=== PATIENT | female | born 1935 | race Caucasian/White ===

== ENCOUNTER 2018-03-30 02:56 | Observation (INO) | payer OTHER, SELFPAY ==
[2018-03-30] VITALS (8 sets, daily range): BP systolic 118–157; BP diastolic 51–84; PULSE 63–78; RESP 13–20; TEMP 36.1–36.6; O2SAT 97–100; BMI 16.6
--- NOTE | 2018-03-30 | DI.MRI.S_ITS ---
PROCEDURE: MR STROKE Pre- and post-contrast brain MRI, non-contrast brain MR angiogram, pre- and postcontrast neck MR angiogram INDICATIONS: possible TIA TECHNIQUE: Brain: Noncontrast axial T1 spin echo, axial T2 fast spin echo, sagittal and axial FLAIR, coronal T2 fast spin echo, axial gradient echo, axial diffusion and ADC through the brain. After the administration of contrast, axial 3D VIBE of the cranial vasculature and brain. Brain MRA: Non-contrast 3-D time of flight MR angiogram, with multiple iansagj-epbgcanwv-coedbmnpov (MIP) reformats performed. Neck MRA: Axial and sagittal TruFISP through the neck. Coronal dynamic MR angiogram during administration of contrast in the arterial and venous phases, with 3-dimenstional cepxdgk-nnvgputqe-gusebamaoa (MIP) reformats constructed from subtraction images. COMPARISON: [facility], MR, BRAIN WITHOUT CONTRAST, 09/28/2008, 7:02. [facility], CT, CT HEAD/BRAIN WO CON, 03/30/2018, 2:56. [facility], CT, CT HEAD/BRAIN WO CON, 01/23/2018, 8:22. [facility], CT, HEAD WITHOUT CONTRAST, 04/02/2015, 15:39. [facility], MR, STROKE PROTOCOL, 02/20/2015, 14:44. FINDINGS: Image quality: Excellent. BRAIN: CSF spaces: Ventricles are normal in size and shape. Basal cisterns are patent. No extra-axial fluid collections. Brain: No intracranial bleeds or mass effects. Dodson-white matter interface is normal. Diffusion weighted images show no acute ischemic insults. Brainstem appears normal. Normal intravascular flow voids are present. No abnormal intracranial enhancement. Skull and face: Calvarial marrow signal is normal. Orbits appear normal. Note is made of bilateral lens replacements. Sinuses: Sinuses and mastoids are clear. There is a prominent right-sided kym bullosa, with associated mild to moderate leftward nasal septal deviation. BRAIN MR ANGIOGRAM: Anterior circulation: Intracranial internal carotid arteries are normal in size and enhancement. The flow within the paired anterior cerebral arteries is normal and symmetric. The flow within the middle cerebral arteries is normal and symmetric. The anterior communicating artery is seen. 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 Posterior circulation: The visualized portions of the vertebral arteries demonstrate normal caliber, and join to form a normal appearing basilar artery. There is a prominent left posterior communicating artery seen, with an accompanying diminutive left P1 segment. This is attributed to a type origin of the left posterior cerebral artery, which is considered to be a normal developmental variant of typically no clinical consequence. The flow within the posterior cerebral arteries is normal and symmetric. No stenoses, occlusions, or aneurysms. NECK MR ANGIOGRAM: Carotids: Great vessels demonstrate a conventional anatomy as they arise from the aortic arch. The origins of the common carotid arteries appear patent. The calibers and courses of both common carotid arteries are normal. The bifurcation regions the straight atherosclerotic irregularity. There is a mild stenosis of approximately 30% involving the right proximal internal carotid artery. Posterior circulation: The origins of the vertebral arteries appear patent. More superior portions of both vertebral arteries demonstrate normal caliber, and join to form a normal appearing basilar artery. Tortuosity can be seen involving the mid vertebral arteries. Miscellaneous: Subclavian arteries appear patent. Pre-contrast images through the neck show no soft tissue abnormalities. IMPRESSION: BRAIN MRI: No findings of acute or subacute infarction can be seen. Note is made of age-appropriate brain parenchymal volume loss and chronic small vessel ischemic changes. No masses or abnormal enhancement can be seen. 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 [place] anomaly incidentally noted, the type origin of the left posterior cerebral artery. NECK MR ANGIOGRAM: Approximately 30% stenosis seen involving the origin of the right internal carotid artery. Dictated by: Ishan Siddiqui M.D. on 03/30/2018 at 11:46 Approved by: Ishan Siddiqui M.D. on 03/30/2018 at 11:53
--- NOTE | 2018-03-30 | DI.ECHO.S_ITS ---
[facility]---------+ [facility] +---------+ : : [address] [place] [address] : : : : [id number] : : : : Phone: [phone] Echocardiogram Report + + :Name: CALLI OCAMPO Study Date: 03/30/2018 Height: 65 in : :[facility] Weight: 104 lb : : Gender: Female BSA: 1.5 m2 : :: 1935 Age: 83 yrs BP: 140/84 mmHg: :Reason For Study: TIA : : Performed By: Becca Holm : :Referring: CANDIE NORRIS : + + Interpretation Summary 1. Normal left ventricular size, wall thickness and systolic function with an estimated EF of 60-65% 2. Grossly normal right ventricular size and systolic function. The estimated RVSP is 22 mm Hg. The estimated right atrial pressure is low. 3. No evidence for significant valvular pathology When compared to the previous study, no significant change Procedure: A two-dimensional transthoracic echocardiogram with color flow and Doppler was performed. Comparison is made with the echocardiogram of 06/08/2017. The study quality was technically adequate. The patient was in normal sinus rhythm during the exam. Left Ventricle: There has been no significant change since the previous study. The left ventricle is normal in size. There is normal left ventricular wall thickness. The ejection fraction is estimated to be 60-65%. Diastolic function could not be accurately assessed due to unobtainable data. Right Ventricle: The right ventricle grossly appears normal in size with probable normal systolic function. Atria: The left atrial size is normal. Right atrial size is normal. No color doppler evidence for an ASD. Mitral Valve: The mitral valve leaflets appear mildly thickened, but open well. There is no mitral regurgitation noted. Aortic Valve: The aortic valve is trileaflet. The aortic valve opens well. Mild sclerotic changes. No aortic regurgitation is present. Tricuspid Valve: The tricuspid valve leaflets are thin and pliable. There is mild to moderate tricuspid regurgitation. The right ventricular systolic pressure is estimated at 22 mmHg assuming a right atrial pressure of 3 mm Hg. Pulmonic Valve: The pulmonic valve is not well visualized. Great Vessels: The aortic root is normal size. The dimensions of the ascending aorta are normal. The IVC is of normal diameter and collapses greater than 50% with a sniff. This suggests a low right atrial pressure of 3 mm Hg. Pericardium/ Pleura There is no pericardial effusion. There is no pleural effusion. MMode/2D Measurements & Calculations LVIDd: 4.3 cm Ao root diam: 3.3 cm LVIDs: 2.4 cm asc Aorta Diam: 3.0 cm FS: 45.1 % Ao Arch Diam (Prox Trans): 2.5 cm IVSd: 0.59 cm LVPWd: 0.75 cm LV marie. diameter/BSA (cm/m^2): 2.9 LV sys. diameter/BSA (cm/m^2): 1.6 LA dimension: 2.4 cm RA long axis: 2.8 cm RA area: 6.8 cm2 RA vol: 13.7 ml RA : 9.2 ml/m2 IVC diam: 1.6 cm RVD1 (basal): 3.6 cm Doppler Measurements & Calculations Ao V2 max: 141.6 cm/sec MV E max indra: 79.3 cm/sec Ao V2 mean: 95.4 cm/sec MV A max indra: 89.0 cm/sec Ao max P.0 mmHg MV E/A: 0.89 Ao mean P.3 mmHg Med Peak E' Indra: 4.8 cm/sec Ao V2 VTI: 30.7 cm E/E' med: 16.4 Lat Peak E' Indra: 5.7 cm/sec E/E' lat: 14.0 E/e' average: 15.2 MV dec time: 0.24 sec MV P1/2t: 71.3 msec TR max indra: 215.8 cm/sec MV P1/2t max indra: 78.9 cm/sec TR max P.6 mmHg MVA(P1/2t): 3.1 cm2 PA V2 max: 95.3 cm/sec PA V2 mean: 67.9 cm/sec PA mean P.1 mmHg PA Accel Time: 0.15 sec Reading Physician:DINAH
--- NOTE | 2018-03-30 02:58 | DI.CT.S_ITS ---
PROCEDURE: CT HEAD/BRAIN WO CON INDICATIONS: stroke. headache, confusion TECHNIQUE: Noncontrast 4.5 mm thick angled axial sections acquired from the foramen magnum to the vertex, with coronal and sagittal reformats. For radiation dose reduction, the following was used: automated exposure control, adjustment of mA and/or kV according to patient size. COMPARISON: [facility], CT, CT HEAD/BRAIN WO CON, 01/23/2018, 8:22. [facility], CT, HEAD WITHOUT CONTRAST, 04/22/2017, 8:55. [facility], CT, HEAD WITHOUT CONTRAST, 04/02/2015, 15:39. FINDINGS: Image quality: Excellent. CSF spaces: Basal cisterns are patent. No extra-axial fluid collections. The ventricles are symmetric in size and shape. Brain: No intracranial bleeds or masses. There is cerebral volume loss for age, with resultant ventricular and sulcal prominence. There are periventricular and deep white matter chronic small vessel ischemic changes. There is intracranial internal carotid artery atherosclerosis. Skull and face: Calvarium and visualized facial bones appear intact, without suspicious lesions. Sinuses: Visualized sinuses and mastoids are clear. IMPRESSION: Moderate microvascular atherosclerotic change in the deep white matter of each hemisphere, expected for age. No mass or hemorrhage, or suspicion for presence of stroke is found. Dictated by: Jules Gordon M.D. on 03/30/2018 at 8:10 Approved by: Jules Gordon M.D. on 03/30/2018 at 8:11
--- NOTE | 2018-03-30 03:23 | ED_ITS ---
HPI - Altered Mental Status General Chief Complaint: Neuro Symptoms/Deficit Stated Complaint: Confusion/ Headache Time Seen by Provider: 03/30/18 02:58 Source: patient and EMS Mode of arrival: EMS Limitations: no limitations History of Present Illness HPI narrative: 83F with history of HTN, and traumatic ICH presents via EMS with chief complaint of confusion and difficulty with word finding since waking up at 0230. She did not know where she was and had trouble with speech with EMS. She states she went to bed at about 2000. She denies other focal neurologic symptoms. She states she is perhaps feeling a bit better on her arrival. She is activated as code stroke and taken directly to CT. She lives at home alone. MD complaint: altered mental status and confusion Time: 02:30 Severity: mild Related Data Home Medications Medication Instructions Recorded Confirmed VITAMIN D (LEON VITAMIN D) 2,000 iu PO QDAY #0 06/02/11 Calcium/Vitamin D (#CALCIUM + D 1 tab PO TID #0 08/06/11 600 MG-200 IU) FOLIC ACID (#FOLACIN-800) 0.8 mg PO QDAY #0 08/06/11 VITAMIN B COMPLEX (Q-[id number]-33) 1 cap PO BID #0 03/10/12 Previous Rx's Medication Instructions Recorded levothyroxine [Synthroid] 75 mcg PO QAM #90 tab 01/29/17 diazepam 0 PO SEE INSTRUCTIONS #30 tab 02/16/17 nitroglycerin [Nitrostat] 0.4 mg SUBLINGUAL PRN PRN #25 tab 06/08/17 ramipril 2.5 mg PO QDAY #90 cap 07/12/17 varicella-zoster gE-AS01B (PF) 0.5 ml IM X1 #1 ea 12/08/17 [Shingrix (PF)] Allergies Allergy/AdvReac Type Severity Reaction Status Date / Time atorvastatin [ATORVASTATIN] Allergy Intermediate Unverified 12/29/17 13:03 clopidogrel [CLOPIDOGREL] Allergy Intermediate Chest Unverified 12/29/17 13:03 tightness, itching cephalexin [CEPHALEXIN] Allergy Mild Severe Unverified 12/29/17 13:03 puritis chlorthalidone Allergy Mild Unverified 12/29/17 13:03 [CHLORTHALIDONE] lisinopril [LISINOPRIL] Allergy Mild Unverified 12/29/17 13:03 metoprolol [METOPROLOL] AdvReac Mild Shortness Unverified 12/29/17 13:03 of breath, dizziness, nausea pravastatin [PRAVASTATIN] AdvReac Mild Joint Unverified 12/29/17 13:03 pain, headache, blurred vision, diarrhea, nausea rosuvastatin [ROSUVASTATIN] AdvReac Mild Muscle Unverified 12/29/17 13:03 cramps, leg pain Review of Systems Review of Systems All systems reviewed & are unremarkable except as noted in HPI and below Constitutional Denies chills, Denies fever(s), Denies lethargy and Denies weakness Eyes Denies change in vision, Denies eye discharge, Denies irritation and Denies loss of vision ENT Ears, Nose, Mouth, and Throat: Denies change in voice, Denies neck pain and Denies sore throat Cardiovascular Denies chest pain, Denies irregular heart rhythm, Denies lightheadedness, Denies palpitations, Denies dyspnea, Denies dyspnea on exertion and Denies orthopnea Respiratory Denies cough, Denies dyspnea, Denies dyspnea on exertion and Denies wheezing Gastrointestinal Gastrointestinal: Denies abdominal pain, Denies change in bowel habits, Denies diarrhea, Denies nausea and Denies vomiting Genitourinary Denies hematuria, Denies flank pain, Denies urinary incontinence and Denies urinary urgency Musculoskeletal Denies neck pain Integumentary/Breasts Denies pruritus, Denies erythema, Denies rash and Denies wounds Neurologic Reports abnormal speech, Reports confusion, Denies loss of vision and Denies weakness Psychiatric Denies anxiety, Reports confusion, Denies depression, Denies homicidal ideation and Denies suicidal ideation Endocrine Denies palpitations Hematologic/Lymphatic Denies easy bruising Allergic/Immunologic Denies wheezing Exam Initial Vital Signs Initial Vital Signs: Vital Signs Temperature 97.6 F 03/30/18 03:06 Pulse Rate 63 03/30/18 03:06 Respiratory Rate 15 03/30/18 03:06 Blood Pressure 146/60 H 03/30/18 03:06 Pulse Oximetry 100 03/30/18 03:06 Const General: cooperative and well developed Nutritional Appearance: well nourished Orientation: alert, awake, oriented x3 and confused HENMT Head: normocephalic and atraumatic Ears: external ears normal and TM's normal bilaterally Nose: external nose normal and No nasal discharge Face and sinus: sinuses nontender, face symmetric, no sinus tenderness and No dry mucous membranes Mouth: oral mucosae normal and moist mucous membranes Teeth and gingiva: dentition normal Throat: tonsils normal and uvula midline Eyes General: appearance normal, both eyes and all related structures Eyelids: eyelids normal Conjunctivae: conjunctivae normal Sclera: sclerae normal Pupils: PERRL EOM: EOM intact bilaterally Neck Neck: normal visual inspection, trachea midline, No lymphadenopathy, No midline deformity and No JVD Lymphatic: No lymphedema Chest Chest: normal inspection of the chest Resp Effort & Inspection: normal respiratory effort, able to speak in complete sentences, no respiratory distress and no use of accessory muscles Auscultation: clear to auscultation bilaterally, no rales, no rhonchi and no wheezes Cardio Rate: regular rate Rhythm: regular rhythm Heart Sounds: no click, no gallops, no murmurs and no rubs Pulses: normal peripheral pulses GI Inspection: non-distended Palpation: soft, no hepatosplenomegaly, No guarding, No pulsatile mass and No tender Auscultation: normal bowel sounds Back/Spine/Pelvis Back: No CVA tenderness Cervical Spine: cervical ROM normal and No pain with cervical ROM Thoracic/Lumbar Spine: thoracic and lumbar spine normal to inspection Skin General: no rashes or lesions noted, No jaundice and No petechiae Neuro General: alert, oriented x3, gait normal and no focal motor deficits Speech: speech normal Extrem General: full ROM, no clubbing, cyanosis or edema, no pedal edema and no calf tenderness Psych Appearance: well kempt Mental Status: mental status grossly normal Attitude: cooperative Thought Content: normal and suicidality Judgment: judgment good Scores NIH Stroke Scale Level of Conciousness: Alert, keenly responsive Ask month/age: Answers both questions correctly. Open/close eyes, close hand: Performs both tasks correctly Best gaze horizontal: Normal Visual hills: No visual loss Facial palsy: Normal symetrical movement Left arm drift: No drift for full 10 sec Right arm drift: No drift for full 10 sec Left leg drift: No drift for full 10 sec Right leg drift: No drift for full 10 sec Limb ataxia: Absent Sensory on face/arms/legs: Normal, no sensory loss Best language: No aphasia, normal Dysarthria: Normal Extinction or inattention: No abnormality Total NIH Stroke scale score: 0 Course Orders Ordered: ED Orders 03/30/18 02:58 CT head/brain wo con Stat Urine Drug Screen, Rapid Stat EKG-12 Lead Stat 03/30/18 03:20 Basic Metabolic Panel Stat Complete Blood Count AUTO DIFF Stat Partial Thromboplastin Time Stat Prothrombin Time INR Stat Sodium Chloride (Normal Saline 0.9%) 1,000 mls @ 150 mls/hr IV CONT RYAN Last Admin: 03/30/18 04:11 Dose: 150 mls/hr Discontinued Medications Aspirin (Aspirin Chew) 324 mg PO NOW ONE Stop: 03/30/18 04:04 Last Admin: 03/30/18 04:11 Dose: 324 mg Reevaluation(s) Reevaluation #1: Patient was still a bit confused and having difficulty finding words on her arrival and while being transported to CT however by the time the NIH stroke scale was performed she had no more symptoms Consultations Consultation #1: Dr. Ramsay happy to accept patient on her service in observation status Vital Signs - 8 hr 03/30/18 03:06 Temperature 97.6 F Pulse Rate 63 Respiratory Rate 15 Blood Pressure 146/60 H Pulse Oximetry 100 MDM - Altered Mental Status Differential Diagnosis Likely altered mental status, delirium, dementia and subarachnoid hemorrhage Medical Records Attestation: I reviewed the patient's medical records. Lab Data Attestation: I reviewed the patient's lab results. Result diagrams: 03/30/18 03:20 03/30/18 03:20 Lab Results 03/30/18 03/30/18 03/30/18 Range/Units 03:20 03:20 03:20 WBC 3.3 L (4.5-11.0) X10^3/uL RBC 4.75 (4.0-5.2) X10^6/uL Hgb 13.4 (12.0-16.0) g/dL Hct 40.1 (36-46) % MCV 84.4 (80-100) fL MCH 28.2 (26-34) PG MCHC 33.4 (30-36) % RDW 13.6 (11.6-14.8) % Plt Count 169 (150-400) X10^3/uL Neut % (Auto) 45.7 L (50-75) % Lymph % (Auto) 42.6 H (25-40) % [place] % (Auto) 8.1 (3-14) % Eos % (Auto) 2.4 (2-4) % Baso % (Auto) 1.2 (0-2) % Neut # (Auto) 1500 L (3198-3433) /uL PT 10.3 (10.1-12.7) SECONDS INR 0.9 (0.9-1.3) APTT 28 (26.4-36.2) SECONDS Sodium 141 (137-145) mmol/L Potassium 4.1 (3.4-5.1) mmol/L Chloride 100 (98-107) mmol/L Carbon Dioxide 30 (22-32) mmol/L BUN 12 (7-17) mg/dL Creatinine 0.90 (0.52-1.04) mg/dL Estimated GFR 59.8 L (>60) mL/min BUN/Creatinine Ratio 13.3 (6-22) Glucose 90 (80-110) mg/dL Calcium 9.7 (8.4-10.2) mg/dL Imaging Data CT scan - head: Radiologist's impression: NAP Discharge Plan Departure Patient Disposition: Admitted as Observation Clinical Impression: Brain TIA Admit Date/Time: 03/30/18 04:07 Admit Provider: Priya Ramsay
[2018-03-30 03:40] LABS: INR 0.9 (0.9-1.3); Prothrombin Time 10.3 SECONDS (10.1-12.7)
[2018-03-30 03:42] LABS: PTT Partial Thromboplastin Tim 28 SECONDS (26.4-36.2)
[2018-03-30 03:44] LABS: BUN Creatinine Ratio 13.3 (6-22); Blood Urea Nitrogen 12 mg/dL (7-17); Calcium 9.7 mg/dL (8.4-10.2); Carbon Dioxide 30 mmol/L (22-32); Chloride 100 mmol/L (98-107); Estimated Glomerular Filt Rate 59.8 mL/min (>60); Glucose 90 mg/dL (80-110); HEMOLYSIS < 15 (0-50); Potassium 4.1 mmol/L (3.4-5.1); Sodium 141 mmol/L (137-145)
[2018-03-30 03:59] LABS: Add Manual Diff / Slide Review NO; Basophils Percent Auto 1.2 % (0-2); Eosinophils Percent Auto 2.4 % (2-4); Hematocrit 40.1 % (36-46); Hemoglobin 13.4 g/dL (12.0-16.0); Lymphocytes Percent Auto 42.6 % (25-40); Mean Corpuscular HGB Conc 33.4 % (30-36); Mean Corpuscular Hemoglobin 28.2 PG (26-34); Mean Corpuscular Volume 84.4 fL (80-100); Monocytes Percent Auto 8.1 % (3-14); Neutrophils Absolute Auto 1500 /uL (3000-5900); Neutrophils Percent Auto 45.7 % (50-75); Platelet Count 169 X10^3/uL (150-400); Red Blood Cell Count 4.75 X10^6/uL (4.0-5.2); Red Cell Distribution Width 13.6 % (11.6-14.8); White Blood Cell Count 3.3 X10^3/uL (4.5-11.0)
[2018-03-30] MEDS: ASPIRIN 81 MG TAB 324 MG PO (04:11)
[2018-03-30] MEDS: SODIUM CHLORIDE 0.9% 1,000 ML 150 ML IV (04:11)
[2018-03-30] MEDS: SODIUM CHLORIDE 0.9% 1,000 ML 80 ML IV (04:30)
--- NOTE | 2018-03-30 04:40 | PC.NURSE ---
c/o Confused upon waking at 0230, called EMS herself, reports confusion improving since that time, also c/o headache/malaise yesterday prior to going to bed. Reports problem with speech as trouble forming words however her speech is clear and coherent
--- NOTE | 2018-03-30 05:17 | PC.NURSE ---
Admit Note: Pt arrived from ED per elaina, SHERIOx3, pleasant. Ambulated to bed w/o problems. Complains of posterior sharp throbbing headache 3/10, and dull frontal headache. Denies wanting pain medication at this time, just wants to sleep. VSS, placed on tele. IVF's started, bed alarm on for moderate fall risk due to neuro changes. Stable on admit.
--- NOTE | 2018-03-30 06:38 | PC.ADMIT ---
[email or web address] [facility] Admission Note: The patient,Kaylene Tran,83 y/o, was given written information regarding hospital policies, unit procedures and contact persons. Patient's smoking status: Never smoker. Vital Signs - 8 hr 03/30/18 03:06 03/30/18 03:15 03/30/18 03:30 Temperature 97.6 F Pulse Rate 63 67 63 Respiratory Rate 15 17 16 Blood Pressure 146/60 H Blood Pressure [Right Arm] 155/61 H 127/59 H Pulse Oximetry 100 98 99 03/30/18 03:45 03/30/18 04:00 03/30/18 04:30 Temperature 97.0 F L Pulse Rate 64 64 64 Respiratory Rate 13 14 18 Blood Pressure 140/84 H Blood Pressure [Right Arm] 124/51 H 118/59 L Pulse Oximetry 98 99 97 Pt is AxOx3, VSS, no s/s of distress, ambulated to bed well with standby assist. IVF started as ordered. Telemetry placed. Pt stated she had a dull headache but did not want any medications for it. Speech is clear, thought process clear, no motor deficit, appropriate extremity strength, facial symmetry intact, no edema. Scabs noted on face due to hitting her face against the kitchen cabinet a few days ago by accident.
[2018-03-30 08:45] LABS: Cholesterol 209 mg/dL (140-199); HDL Cholesterol 68 mg/dL (40-60); LDL Cholesterol Calculated 126 mg/dL (<100); Triglycerides 76 mg/dL (35-150)
--- NOTE | 2018-03-30 09:12 | P.HP_ITS ---
History of Present Illness Date Patient Seen: 03/30/18 Time Patient Seen: 07:45 Chief complaint: Confusion/ Headache Narrative: The pt is a 83 year old woman with HTN, hypothyroidism, and CAD s/p [place] with stent placement who presented with confusion. The pt reports that last night she woke from sleep around 2:30am, and felt very befuddled. At first, she did not know where she was. She then realized she was at home, and due to the confusion called EMS. She did remember her address to tell them. She has a difficult time describing the confusion, other than to say she was befuddled. Reportedly, when EMS arrived she did not know where she was and was having a difficult time speaking. The pt had gone to bed around 10pm. After arrival in the ED, the pt gradually felt less and less confused. On waking this morning, she feels completely back to her normal baseline. The pt reports that she has been having a mild occipital headache for the past week. She denies any recent vision changes. Along with her confusion, she noted that her legs felt more weak than usual, left worse than right, but she was still able to ambulate. She denies any other focal weakness or sensory deficits. She denies any chest pain. Yesterday afternoon she had mild SOB, but this was resolved by last evening. Patient History Medical History CAD (coronary artery disease) (Chronic) Cataracts, bilateral (Chronic 2014) Concussion (Chronic 1999) GERD (gastroesophageal reflux disease) (Chronic 2008) Heart failure (Chronic) Hyperlipidemia (Chronic) Hypertension (Chronic) Hypothyroidism (Chronic) Peptic ulcer disease (Chronic 2008) Peripheral neuropathy (Chronic) Colon polyps (Resolved) Fall at home (Resolved 09/2014) H/O coronary angiogram (Resolved) Surgical History History of angioplasty (Resolved 2011) Status post colonoscopy (Resolved 2009) Status post colonoscopy (Resolved 12/29/13) Status post hysterectomy with oophorectomy (Resolved 1997) Family & Social History Family History: Reviewed 03/30/18 by Priya Ramsay MD Social History: household members none Prior Living Arrangements Mobile home Safety & Behavioral: Feels Safe in Current Yes Environment Been Physically Hurt or No Threatened By a Person Suicidal Ideation Description None Tobacco & Substance use: Smoking Status Never smoker alcohol intake current alcohol intake frequency a few times a week Substance Use Type does not use Meds Home Medications Medication Instructions Recorded Confirmed Type VITAMIN D (LEON VITAMIN D) 2,000 iu PO QDAY #0 06/02/11 History Calcium/Vitamin D (#CALCIUM + D 1 tab PO TID #0 08/06/11 History 600 MG-200 IU) FOLIC ACID (#FOLACIN-800) 0.8 mg PO QDAY #0 08/06/11 History VITAMIN B COMPLEX (I-[id number]-50) 1 cap PO BID #0 03/10/12 History levothyroxine [Synthroid] 75 mcg PO QAM #90 tab 01/29/17 03/30/18 Rx diazepam 0 PO SEE INSTRUCTIONS #30 tab 02/16/17 Rx nitroglycerin [Nitrostat] 0.4 mg SUBLINGUAL PRN PRN #25 tab 06/08/17 Rx ramipril 2.5 mg PO QDAY #90 cap 07/12/17 Rx varicella-zoster [id number] (PF) 0.5 ml IM X1 #1 ea 12/08/17 Rx [Shingrix (PF)] Allergies Allergy/AdvReac Type Severity Reaction Status Date / Time atorvastatin [ATORVASTATIN] Allergy Intermediate Unverified 12/29/17 13:03 clopidogrel [CLOPIDOGREL] Allergy Intermediate Chest Unverified 12/29/17 13:03 tightness, itching cephalexin [CEPHALEXIN] Allergy Mild Severe Unverified 12/29/17 13:03 puritis chlorthalidone Allergy Mild Unverified 12/29/17 13:03 [CHLORTHALIDONE] lisinopril [LISINOPRIL] Allergy Mild Unverified 12/29/17 13:03 metoprolol [METOPROLOL] AdvReac Mild Shortness Unverified 12/29/17 13:03 of breath, dizziness, nausea pravastatin [PRAVASTATIN] AdvReac Mild Joint Unverified 12/29/17 13:03 pain, headache, blurred vision, diarrhea, nausea rosuvastatin [ROSUVASTATIN] AdvReac Mild Muscle Unverified 12/29/17 13:03 cramps, leg pain Review of Systems Constitutional Constitutional: Denies difficulty sleeping, Denies fatigue, Reports frequent falls, Reports headache(s), Denies night sweats, Reports weakness and Reports weight loss ENT Ears, Nose, Mouth, and Throat: No abnormal hearing, No change in voice, No dry mouth, Yes headache(s), No ringing in the ears, No sinus pain and No sore throat Cardiovascular Cardiovascular: Denies chest pain, Denies fast heart rate, Denies foot swelling , Denies lightheadedness, Denies rapid, pounding, or irregular heartbeat and Reports shortness of breath Respiratory Respiratory: Denies cough, Reports dyspnea and Denies wheezing Gastrointestinal Gastrointestinal: Denies abdominal pain, Denies constipation, Denies heartburn, Denies nausea and Denies vomiting Musculoskeletal Musculoskeletal: Denies abnormal gait and Denies limited range of motion Neurologic Neurologic: Denies abnormal hearing, Denies abnormal gait, Reports frequent falls, Reports headache(s) and Reports weakness Endocrine Endocrine: Denies fatigue and Denies palpitations Allergic/Immunologic Allergic/Immunologic: Denies wheezing Exam Vital Signs (past 8 hours): - 03/30/18 03:06 03/30/18 03:15 03/30/18 03:30 Temperature 97.6 F Pulse Rate 63 67 63 Respiratory Rate 15 17 16 Blood Pressure 146/60 H Blood Pressure [Right Arm] 155/61 H 127/59 H Pulse Oximetry 100 98 99 03/30/18 03:45 03/30/18 04:00 03/30/18 04:30 Temperature 97.0 F L Pulse Rate 64 64 64 Respiratory Rate 13 14 18 Blood Pressure 140/84 H Blood Pressure [Right Arm] 124/51 H 118/59 L Pulse Oximetry 98 99 97 Oxygen Delivery Method Room Air Narrative Exam Narrative: GEN - alert, cooperative and no distress HEENT - normocephalic and atraumatic, sclera white, moist mucus membranes, throat non-erythematous NECK - FROM, no adenopathy, no JVD HEART - RRR, S1, S2 normal, no S3 or S4, grade 2/6 systolic murmur LUNGS - symmetric chest rise, no accessory muscles, clear to auscultation bilaterally ABD - flat, nondistended, normal bowel sounds, soft, nontender and no hepatomegaly, splenomegaly or masses EXT - no cyanosis, clubbing or edema SKIN - no rashes or suspicious lesions NEURO - alert and and oriented to person, place and situation, Muscle strength is 5/5 UE and LE, Sensation to light touch present bilaterally, Coordination shows finger to nose, heel to quinn, and arm roll normal bilaterally Objective Imaging CT scan - head: Radiologist's impression: Moderate microvascular atherosclerotic change in the deep white matter of each hemisphere, expected for age. No mass or hemorrhage, or suspicion for presence of stroke is found. Labs Result Diagrams: 03/30/18 03:20 03/30/18 03:20 Labs: Laboratory Results - last 24 hr 03/30/18 03/30/18 03/30/18 03:20 03:20 03:20 WBC 3.3 L RBC 4.75 Hgb 13.4 Hct 40.1 MCV 84.4 MCH 28.2 MCHC 33.4 RDW 13.6 Plt Count 169 Neut % (Auto) 45.7 L Lymph % (Auto) 42.6 H [place] % (Auto) 8.1 Eos % (Auto) 2.4 Baso % (Auto) 1.2 Neut # (Auto) 1500 L PT 10.3 INR 0.9 APTT 28 Sodium 141 Potassium 4.1 Chloride 100 Carbon Dioxide 30 BUN 12 Creatinine 0.90 Estimated GFR 59.8 L BUN/Creatinine Ratio 13.3 Glucose 90 Calcium 9.7 Triglycerides Cholesterol LDL Cholesterol, Calc HDL Cholesterol 03/30/18 Unknown WBC RBC Hgb Hct MCV MCH MCHC RDW Plt Count Neut % (Auto) Lymph % (Auto) [place] % (Auto) Eos % (Auto) Baso % (Auto) Neut # (Auto) PT INR APTT Sodium Potassium Chloride Carbon Dioxide BUN Creatinine Estimated GFR BUN/Creatinine Ratio Glucose Calcium Triglycerides 76 Cholesterol 209 H LDL Cholesterol, Calc 126 H HDL Cholesterol 68 H Assessment & Plan (1) Brain TIA: Problem details: Negative CT scan, but symptoms most consistent with TIA. Does have risk factors of HTN and CAD. 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 Current visit: No Status: Chronic Plan: Assessment/Plan Narrative: 1) TIA: Symptoms completely resolved - MRI stroke protocol today - Echocardiogram today - Start daily aspirin - Pt is not statin tolerant, therefore unfortunately cannot initiate therapy - PT eval due to leg weakness yesterday 2) Hypertension: - Continue Ramipril 3) Hypothyroidism: - Continue Levothyroxine FEN: Normal diet Dispo: Possible d/c later today pending results of above testing.
--- NOTE | 2018-03-30 09:26 | CM.DANOTE ---
DCP: Case received, EMR reviewed and met with patient. Introduced self and role. DCP template completed with info currently available. Pt is n 83 year old female who admitted yesterday afternoon to care f hospitalist team. PCP: Dr. Ramsay Payer: confirmed: [facility] Ad[facility] Pt. carries symptoms of headache, and was admitted for confusion as well. Currently alert and oriented. Plan: Patient lives at home alone and has been independent. Will consult with hospitalist team to discuss discharge. Further testing may be done to rule out CVA Mariza Hickey RN/residential case manager
[2018-03-30] MEDS: RAMIPRIL 2.5 MG CAPSULE PO (13:29)
[2018-03-30] MEDS: LEVOTHYROXINE 75 MCG TABLET PO (13:29)
--- NOTE | 2018-03-30 14:59 | PC.NURSE ---
Pts NIH stroke scale O today. Hood Maker wnl and o slurred speech. Pt showered and is sitting up in her chair. ate well at breakfast and lunch. Waiting for echo around 1530.
--- NOTE | 2018-03-30 15:21 | PC.NURSE ---
1520 pt receiving bedside echo. rounding on pt. states pt okay to DC after echo at 1700.even if report not yet read.
--- NOTE | 2018-03-30 15:57 | PT.IIE ---
Current Diagnoses Hypothyroidism, unspecified (03/30/18) Other transient cerebral ischemic attacks and related syndromes (03/30/18) Essential (primary) hypertension (03/30/18) Surgical History (Last Reviewed 03/30/18 @ 09:40 by Priya Ramsay MD) History of angioplasty (Resolved 2011) Status post colonoscopy (Resolved 2009) Status post colonoscopy (Resolved 12/29/13) Status post hysterectomy with oophorectomy (Resolved 1997) Medical History (Last Reviewed 03/30/18 @ 09:40 by Priya Ramsay MD) CAD (coronary artery disease) (Chronic) Cataracts, bilateral (Chronic 2014) Concussion (Chronic 1999) GERD (gastroesophageal reflux disease) (Chronic 2008) Heart failure (Chronic) Hyperlipidemia (Chronic) Hypertension (Chronic) Hypothyroidism (Chronic) Peptic ulcer disease (Chronic 2008) Peripheral neuropathy (Chronic) Colon polyps (Resolved) Fall at home (Resolved 09/2014) H/O coronary angiogram (Resolved) Physical Therapy Inpatient Evaluation/Re-Eval M1 PT/OT-IP Prior Functional Status Start: 03/30/18 15:37 Freq: NEEDED Status: Active Protocol: Document 03/30/18 14:45 MDD (Rec: 03/30/18 15:57 MDD [id number]) Medical Review Prior Functional Status Medical History Reviewed Yes Mobility and Gait Mod independent with single point cane. Activities of Daily Living and IADL's Ind with ADL's Social History Household Members none Living Arrangements House Number of Floors (Floors) One Floor Number of Stairs To Enter/Railing? 3 stairs to enter, L hand railing Home Environment Standard Height Toilet Walk in Shower Home Equipment Straight Cane Shower Seat with Backrest Grab Bars Near Toilet Grab Bars In Shower Employment Status Retired Additional Social History Comment Pt lives alone but reports that she has a lot of support and assistance with neighbors on her group [address]. M2 PT-IP Current Condition Start: 03/30/18 15:37 Freq: NEEDED Status: Active Protocol: Document 03/30/18 14:45 MDD (Rec: 03/30/18 15:57 MDD [id number]) Physical Therapy Current Condition Current Condition Evaluation Date 03/30/18 Treatment Diagnosis confusion, balance deficits Onset Date 03/30/18 M3 PT-IP Subjective Start: 03/30/18 15:37 Freq: NEEDED Status: Active Protocol: Document 03/30/18 14:45 MDD (Rec: 03/30/18 15:57 MDD [id number]) Subjective Physical Therapy Visit Type Type Initial Evaluation Visit Start Time 14:05 Visit Stop Time 14:45 Total Visit Minutes 40 Number of WING SCORER Visits 0 Physical Therapy Visit Comments Patient Comments Pt reports feeling much better than this morning. Short Term Goals Pt goal is to go home this evening Therapy Pain Assessment Pain Present Pain Present Denied Pain M4 PT-IP Mobility and Gait Start: 03/30/18 15:37 Freq: NEEDED Status: Active Protocol: Document 03/30/18 14:45 MDD (Rec: 03/30/18 15:57 MDD [id number]) PT-Bed Mobility Assessment Rolling Level of Assist Independent Supine to Sit Supine to Sit Independent Sit to Supine Sit to Supine Independent Scooting Scooting to Edge of Bed Independent PT-Transfer Assessment Sit to and From Stand Sit to and from Stand Independent Equipment Transfer Assistive Device Gait Belt Straight Cane Orthotic/Prosthetic Devices or Brace: No Transfers Transfer Destination Bed Chair Transfer Ability Level of Assist Independent Gait Assessment Gait Gait Assistance Required: Independent Standby Assistance Distance (Feet) (feet) 120 Able to Maintain Weight Bearing Status Yes During Gait Assistive Devices Assistive Device Straight Cane Orthotic/Prosthetic Devices or Brace: No Gait Deviations General Gait Pattern Within Normal Limits Comments Gait Comments Pt does not utilize can with every step, reports it is mostly for her confidence than to assist with balance. Stair Climbing Assessment Evaluation Level of Assist On Stairs Independent Technique/Endurance Stair Climbing Direction Ascend and Descend Stair Climbing Technique Step to Step Number of Steps Climbed 3 Query Text: Comments Stair Climbing Comments utilizing left railing going up PT-Balance Assessment Sitting Balance and Reactions Static Sitting Balance Ability Normal Dynamic Sitting Balance Ability Normal Standing Balance and Reactions Static Standing Balance Ability Normal Dynamic Standing Balance Ability Normal Balance Tests [place] Balance Test Score 50 Query Text:Score Functional Assessments Functional Tests 30 Seconds Sit to Stand Test 15 sit to stands M5 PT-IP Objective Assessments Start: 03/30/18 15:37 Freq: NEEDED Status: Active Protocol: Document 03/30/18 14:45 MDD (Rec: 03/30/18 15:57 MDD [id number]) Orientation Orientation/Cognition Level of Alertness Alert Orientation Name Age Date Day of Week Place Situation Language Function Ability No Deficits Noted Safety Awareness Understands Safety Issues Memory Description No Deficits Noted Gross Range of Motion Upper Extremity ROM Assessment Within Functional Limits Lower Extremity ROM Assessment Within Functional Limits Strength Lower Extremity Strength Assessment Within Functional Limits Coordination Assessment Gross Coordination Gross Coordination WNL Sensation Assessment Sensation Gross Sensation WNL Light Touch Intact M6 PT-IP Treatment Start: 03/30/18 15:37 Freq: NEEDED Status: Active Protocol: Document 03/30/18 14:45 MDD (Rec: 03/30/18 15:57 MDD [id number]) Physical Therapy Treatment Education Education Provided Safety Other Treatments Other Treatment Performed Educated patient on HEP for improving balance including: standing hip abduction, single leg balance, heel raises, sit to stands M7 PT-IP Assessment and Plan Start: 03/30/18 15:37 Freq: NEEDED Status: Active Protocol: Document 03/30/18 14:45 MDD (Rec: 03/30/18 15:57 MDD [id number]) PT Summary Assessment and Plan Potential Rehabilitation Potential Excellent Status of Condition at Evaluation Stable Summary Progress Towards Goals Safe For Discharge Goals Met Assessment Summary Pt demos independence with bed mobility, gait and stairs. Safe for d/c home when medically appropriate. Goals Bed Mobility Goal Independent Transfer Goal Independent Gait Goal Independent Gait Distance 100 feet, level ground Other Goals ascend/descend 3 stairs with single handrail on L going up. Days to Meet Goals 1 Frequency of Treatment Frequency Of Treatment Discharge Treatment Plan Physical Therapy Treatment Plan Bed Mobility Training Transfer Training Gait Training Therapeutic Exercise Balance Retraining Recommendations To Nursing Amount of Assist Needed Independent Discharge Recommendations PT Discharge Recommendations Home
--- NOTE | 2018-03-30 16:43 | PM.DS.1 ---
History of Present Illness Date Patient Seen: 03/30/18 Time Patient Seen: 15:00 Chief complaint: Confusion/ Headache Narrative: The pt is a 83 year old woman with HTN, hypothyroidism, and CAD s/p [place] with stent placement who presented with confusion. The pt reports that last night she woke from sleep around 2:30am, and felt very befuddled. At first, she did not know where she was. She then realized she was at home, and due to the confusion called EMS. She did remember her address to tell them. She has a difficult time describing the confusion, other than to say she was befuddled. Reportedly, when EMS arrived she did not know where she was and was having a difficult time speaking. The pt had gone to bed around 10pm. After arrival in the ED, the pt gradually felt less and less confused. On waking this morning, she feels completely back to her normal baseline. The pt reports that she has been having a mild occipital headache for the past week. She denies any recent vision changes. Along with her confusion, she noted that her legs felt more weak than usual, left worse than right, but she was still able to ambulate. She denies any other focal weakness or sensory deficits. She denies any chest pain. Yesterday afternoon she had mild SOB, but this was resolved by last evening. Discharge Providers Date of admission: 03/30/18 04:07 Primary care physician: Priya Ramsay MD Consults: 03/30/18 08:21 Consult to Physical Therapy Evaluate & Treat Comment: Physician Instructions: Evaluate and Treat Discharge provider: Priya Ramsay MD Summary Discharge Diagnosis: TIA Hypertension Hypothyroidism Hospital Course: The pt was admitted due to concern for TIA. Her symptoms resolved completely while in the hospital. CT and MRI/MRA showed no evidence of stroke. MRA showed 30% stenosis of carotid arteries. Echocardiogram was completed which was stable from previous Echo. The pt remained in sinus rhythm. PT evaluated the pt, and found her stable to return home. The pt was discharged home with instructions to start a daily aspirin. She was not started on a statin, as she has not tolerated these in the past. Status at Discharge Cognitive/behavioral status at discharge: Stable Functional status at discharge: independent ambulation Overall status at discharge: patient is back to baseline Time Spent with Patient Greater than 30 minutes Exam Vital Signs (past 8 hours): - 03/30/18 09:17 03/30/18 13:00 Temperature 97.8 F Pulse Rate 70 78 Respiratory Rate 20 Blood Pressure 157/76 H 155/73 H Pulse Oximetry 99 Oxygen Delivery Method Room Air Oxygen Flow Rate 0 Narrative Exam Narrative: See H&P from earlier today. Exam unchanged. Objective Labs Result Diagrams: 03/30/18 03:20 03/30/18 03:20 Labs: Laboratory Results - last 24 hr 03/30/18 03/30/18 03/30/18 03:20 03:20 03:20 WBC 3.3 L RBC 4.75 Hgb 13.4 Hct 40.1 MCV 84.4 MCH 28.2 MCHC 33.4 RDW 13.6 Plt Count 169 Neut % (Auto) 45.7 L Lymph % (Auto) 42.6 H [place] % (Auto) 8.1 Eos % (Auto) 2.4 Baso % (Auto) 1.2 Neut # (Auto) 1500 L PT 10.3 INR 0.9 APTT 28 Sodium 141 Potassium 4.1 Chloride 100 Carbon Dioxide 30 BUN 12 Creatinine 0.90 Estimated GFR 59.8 L BUN/Creatinine Ratio 13.3 Glucose 90 Calcium 9.7 Triglycerides Cholesterol LDL Cholesterol, Calc HDL Cholesterol 03/30/18 Unknown WBC RBC Hgb Hct MCV MCH MCHC RDW Plt Count Neut % (Auto) Lymph % (Auto) [place] % (Auto) Eos % (Auto) Baso % (Auto) Neut # (Auto) PT INR APTT Sodium Potassium Chloride Carbon Dioxide BUN Creatinine Estimated GFR BUN/Creatinine Ratio Glucose Calcium Triglycerides 76 Cholesterol 209 H LDL Cholesterol, Calc 126 H HDL Cholesterol 68 H Discharge Plan Discharge Plan Patient Disposition: Home, Self-Care Discharge comment: Please start taking aspirin daily. Provider Discharge Instructions Diet: Regular Activity: No limitations on activity Discharge Data Primary Care Provider: Priya Ramsay Attending Provider: Priya Ramsay Admit Date/Time: 03/30/18 04:07
== END 2018-03-30 16:40 | disposition home or self-care (01) ==
LOC: ED 03:35 → AC 04:08
PROVIDERS: Admitting Provider Family Medicine; Emergency Provider Emergency Medicine; PCP Family Medicine; Visit Provider Family Medicine
DX: R51 Headache (principal); R41.0 Disorientation, unspecified; E03.9 Hypothyroidism, unspecified; I10 Essential (primary) hypertension; I25.10 Atherosclerotic heart disease of native coronary artery without angina pectoris; I50.9 Heart failure, unspecified; E78.5 Hyperlipidemia, unspecified; G62.9 Polyneuropathy, unspecified
CPT/HCPCS: 36591; 70450; 70553; 80048; 80061; 82962; 85025; 85610; 85730; 93005; 93306; 96360; 97110; 97161; 99235; 99282; 99285; 99291; G0378; A9579

== ENCOUNTER → 2018-04-11 09:23 | Outpatient (CLI) | payer OTHER, SELFPAY ==
[2018-03-30 04:32] VITALS: BMI 16.6
== END ==
PROVIDERS: PCP Family Medicine; Visit Provider Internal Medicine
DX: E03.9 Hypothyroidism, unspecified (principal)
CPT/HCPCS: 36415; 84443

== ENCOUNTER 2018-04-25 06:33 | Emergency (ER) | payer OTHER, SELFPAY ==
[2018-03-30 04:32] VITALS: BMI 16.6
[2018-04-25 06:43] VITALS: BP 153/63; PULSE 62; RESP 15; TEMP 36.6; O2SAT 99; BMI 17.2
--- NOTE | 2018-04-25 06:45 | DI.RAD.S_ITS ---
PROCEDURE: XR CHEST 1V INDICATIONS: chest tightness TECHNIQUE: One view of the chest was acquired. COMPARISON: [facility], CR, XR CHEST 2V, 01/23/2018, 8:02. FINDINGS: Surgical changes and devices: None. Lungs and pleura: No pleural effusions or pneumothorax. Lungs are clear. Mild pulmonary hyperexpansion could reflect COPD. Mediastinum: Mediastinal contours appear normal. Heart size is normal. Aortic calcifications. Bones and chest wall: No suspicious bony lesions. The right humeral head appears high riding which could indicate rotator cuff pathology. Marginal spurring a.c. and glenohumeral joints. Overlying soft tissues appear unremarkable. IMPRESSION: 1. Possible COPD, no acute cardiopulmonary abnormality. 2. Degenerative joint disease right shoulder. Dictated by: Kris Nicholson M.D. on 04/25/2018 at 8:12 Approved by: Kris Nicholson M.D. on 04/25/2018 at 8:14
[2018-04-25] MEDS: ASPIRIN 81 MG TAB 324 MG PO (06:51)
[2018-04-25 06:57] LABS: Add Manual Diff / Slide Review NO; Basophils Percent Auto 1.3 % (0-2); Eosinophils Percent Auto 1.8 % (2-4); Hematocrit 39.7 % (36-46); Hemoglobin 13.3 g/dL (12.0-16.0); Lymphocytes Percent Auto 42.1 % (25-40); Mean Corpuscular HGB Conc 33.5 % (30-36); Mean Corpuscular Hemoglobin 28.5 PG (26-34); Monocytes Percent Auto 7.2 % (3-14); Neutrophils Absolute Auto 1700 /uL (3000-5900); Neutrophils Percent Auto 47.6 % (50-75); Platelet Count 160 X10^3/uL (150-400); Red Blood Cell Count 4.67 X10^6/uL (4.0-5.2); Red Cell Distribution Width 13.8 % (11.6-14.8); White Blood Cell Count 3.7 X10^3/uL (4.5-11.0)
[2018-04-25 06:59] VITALS: BP 153/63; PULSE 62; RESP 17; O2SAT 100
[2018-04-25 07:11] LABS: Alanine Aminotransferase 24 IU/L (9-52); Albumin 4.1 g/dL (3.5-5.0); Albumin Globulin Ratio 1.5 (1.0-2.8); Alkaline Phosphatase 74 U/L (38-126); Aspartate Aminotransferase 22 IU/L (14-36); BUN Creatinine Ratio 18.8 (6-22); Bilirubin Total 0.5 mg/dL (0.2-1.3); Blood Urea Nitrogen 15 mg/dL (7-17); Calcium 9.6 mg/dL (8.4-10.2); Carbon Dioxide 31 mmol/L (22-32); Chloride 102 mmol/L (98-107); Creatine Kinase 36 U/L (30-135); Estimated Glomerular Filt Rate > 60.0 mL/min (>60); Globulin 2.8 g/dL (1.7-4.1); Glucose 94 mg/dL (80-110); HEMOLYSIS < 15 (0-50); Lipase 104 U/L (23-300); Sodium 141 mmol/L (137-145); Total Protein 6.9 g/dL (6.3-8.2)
[2018-04-25 07:24] LABS: Troponin I < 0.012 ng/mL (0.01-0.034)
[2018-04-25 07:38] VITALS: BP 135/64; PULSE 63; RESP 16; O2SAT 100
[2018-04-25 08:07] VITALS: BP 154/73; PULSE 65; RESP 18
--- NOTE | 2018-04-25 08:30 | DI.CT.S_ITS ---
PROCEDURE: CT ANGIO HEAD AND NECK INDICATIONS: chest pain w/ headache - dissection? TECHNIQUE: Pre-contrast 4.5 mm thick sections acquired from the foramen magnum to the vertex. After the administration of intravenous contrast, 1 mm thick sections acquired from the aortic arch through the [place] of [place]. Post-contrast 4.5 mm thick sections then re-acquired from the foramen magnum to the vertex. 3-dimensional axheiyd-idsvuesbd-qqmsvitvvl (MIP) and/or volume rendering reformats were acquired of the central intracranial vasculature and neck separately. COMPARISON: [facility], MR, MR STROKE, 03/30/2018, 11:43. FINDINGS: Image quality: Excellent. BRAIN: CSF spaces: Ventricles are normal in size and shape. Basal cisterns are patent. No extra-axial fluid collections. Brain: No midline shift. There is age-related chronic global volume loss and white matter hypodensities presumably small vessel ischemic disease. No intracranial bleeds or masses. [place]-white matter interface appears intact. Skull and face: Calvarium and facial bones appear intact, without suspicious lesions. Orbits appear normal. Sinuses: Mild right sphenoid sinus disease. Incidentally noted right kym bullosa.. HEAD CT ANGIOGRAPHY: Anterior circulation: Intracranial internal carotid arteries are normal in size and flow. The flow within the paired anterior cerebral arteries is normal and symmetric. The flow within the middle cerebral arteries is normal and symmetric. The anterior communicating artery is seen. No aneurysms are seen. Posterior circulation: Visualized portions of the vertebral arteries demonstrate normal caliber, and join to form a normal appearing basilar artery. origin of the left posterior cerebral artery. Flow within the posterior cerebral arteries is normal and symmetric. No aneurysms are seen. NECK CT ANGIOGRAPHY: Carotid system: The great vessels demonstrate a conventional anatomy as they arise from the aortic arch. The origins of the common carotid arteries appear patent. The common carotid arteries demonstrate normal caliber and courses. Bilateral carotid calcifications are present. There is 20 % narrowing of the proximal left ICA. 30 % narrowing of the right ICA is also noted. Posterior circulation: The origins of the vertebral arteries both appear widely patent. The more superior extracranial portions of both vertebral arteries also demonstrate normal courses and calibers. They join to form a normal appearing basilar artery. Soft tissues: Visualized neck soft tissues demonstrate no suspicious abnormalities. Bones: No suspicious bony lesions. Visualized cervical spine appears normally aligned. IMPRESSION: No evidence of intracranial occlusion or focal stenosis. 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 This is grossly unchanged since 03/30/18. Bilateral carotid atherosclerosis, with 30% right, and 20% left focal proximal ICA stenoses. Chronic white matter changes and global volume loss. Any quantitative measurements of stenosis were performed using NASCET criteria. Dictated by: Yonatan Peoples M.D. on 04/25/2018 at 9:06 Approved by: Yonatan Peoples M.D. on 04/25/2018 at 9:18
[2018-04-25 09:20] VITALS: BP 146/64; PULSE 65
[2018-04-25 09:42] LABS: Troponin I < 0.012 ng/mL (0.01-0.034)
--- NOTE | 2018-04-25 09:53 | ED_ITS ---
HPI - Chest Pain General Chief Complaint: Chest Pain Stated Complaint: Headache/heavyness on chest Time Seen by Provider: 04/25/18 06:39 History of Present Illness HPI narrative: HPI 83-year-old female with history of recurrent headaches presents for evaluation of mild substernal nonradiating squeezing/pressure type discomfort that has been present since she woke this morning (woke at normal hour, notes discomfort upon awakening) that is without clear provoking or relieving factors and is been steady since awakening, also notes a mild, gradual onset typical headache that is predominantly frontal and present since yesterday evening. No cough, fevers, chills, shortness of breath, denies a history of DVT or PE. Stress test dated 06/17/17 reviewed: patient with an exercise stress test without evidence of ischemia. M/S/F/SocHx notable for: headaches, peptic ulcer disease, insomnia secondary to anxiety, hypothyroidism, chest pain, peripheral neuropathy, traumatic hematoma of the right orbit, essential HTN, memory loss, abnormal gait; remainder reviewed with patient and in chart. ROS: Negative constitutional, eye, cardiovascular, pulmonary, GI, , MSK, skin , neurologic, psychiatric, endocrine unless noted in the HPI. Exam HR 65, BP 154/73, RR 18, SaO2 100%. Gen: Pleasant, non-toxic appearing, resting comfortably. HEENT: NC, AT, PEERL, EOMI, 2+ temporal pulses bilaterally without tenderness palpation or palpable abnormalities. Resp: Clear to auscultation bilaterally, normal work of breathing. Card: RRR with no M/R/G, no crackles in lung bases, no pedal edema, no JVD appreciated. GI: NT/ND Vascular: Both ankles, calves, and thighs of equal size, no calf tenderness to palpation bilaterally. MSK: No chest wall TTP. No visible deformities, strength and tone WNL. Skin: Normal color with no visible lesions. Neuro: Gen AO x 3, no facial asymmetry, no gaze preference, no slurring of speech. CN II-III: pupils equal and reactive (4->2mm bilaterally); III, IV, : EOMI, V1-V3: sensation to touch bilaterally intact; VII: no facial asymmetry ( frown / smile); VIII: no nystagmus; X: phonation intact, uvula midline; XI: trapezius 5/5 bilaterally, XII: tongue midline. Cerebellar: no pronator drift, [id number] testing without dysmetria bilaterally, heel to quinn without dysmetria bilaterally. Psych: mildly anxious, mood and affect otherwise appropriate. Labs / Imaging (pertinent): WBC 3.7, Hb 13.3, Na 141, K 4.0. Troponin (6:54 AM) <0.012, troponin () <0.012 EKG: SR 56 bpm, MD 184 ms, no MD segment depressions, RBBB with QRS 123 ms, ~ 0.[address] segment elevation in lead II and aVF, prominent T waves in the lateral leads. ECG compared with prior dated 03/30/18, no change in morphology appreciated.. CXR: possible COPD, no acute cardiopulmonary abnormality. Degenerative joint disease right shoulder. CTA chest/head/neck: No evidence of intracranial occlusion or focal stenosis. 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 This is grossly unchanged since 03/30/18. Bilateral carotid atherosclerosis , with 30% right, and 20% left focal proximal ICA stenoses. Chronic white matter changes and global volume loss. Any quantitative measurements of stenosis were performed using NASCET criteria. MDM Previous chart, nursing note, and vitals reviewed. A: 83-year-old female with history of recurrent headaches presents for evaluation of mild substernal nonradiating squeezing/pressure type discomfort that has been present since she woke this morning (woke at normal hour, notes discomfort upon awakening) that is without clear provoking or relieving factors and is been steady since awakening, also notes a mild, gradual onset typical headache that is predominantly frontal and present since yesterday evening. DDx: * Chest pressure - ACS, unstable angina, myocarditis, pericarditis, dissection, PE, mediastinal air, pneumothorax, MSK, endocarditis, GI (esophageal rupture, GERD) * Headache - migraine / tension headache, cluster headache, sentinel bleed/SAH, infection ([employer] vs CARNEY secondary to non-[employer]ING [employer]IO [employer] focal infection), tumor/mass effect, hypertensive encephalopathy, glaucoma or iritis, idiopathic intracranial hypertension, cavernous sinus thrombosis, temporal arteritis. Evaluation: patient's symptom constellation is currently of unclear etiology, however history is notable for prior evaluations for chest pain without identifiable cause. Patient has an unchanged ECG, negative serial cardiac enzymes, a stress test within the last 12 months that was negative, and is on appropriate medications for medical management of possible cardiac risk factors. Unstable angina considered, HEART score (below) 3, patient appropriate for outpatient follow-up with cardiology. CTA was without evidence of dissection , given the overall symptom constellation as well lack of identifiable risk factors, strongly doubt PE. No evidence of pneumonia, pericarditis, endocarditis , mediastinal air, pneumothorax, or MSK by the above evaluation. GI cannot be fully excluded, further evaluation deferred to the patient's PCP. With respect to the patient's headache there are no identifiable high-risk features in the presentation is consistent with her long-term recurrent pattern , suspect a mild migrainous type headache. CT head is without evidence of a sentinel bleed, change in the patient's known aneurysm, or other acute intracranial abnormality. History and exam are without evidence of the remainder of the differential with respect to the patient's headache. ED Course: Patient given ASA. Vital signs remained stable and within clinically acceptable limits. Disposition: Discharge with PCP follow up. Return to care precautions given verbally and in writing. Impression: Chest Pain. (please reference below for remainder of encounter information) HEART (Hx - 0, EKG - 0, age - 2, risk factors - 1, troponin - 0; 30 day MACE: less than or equal to 1.7%). Related Data Home Medications Medication Instructions Recorded Confirmed cholecalciferol (vitamin D3) 2,000 unit PO DAILY #0 06/02/11 04/19/18 [Vitamin D3] calcium carbonate-vitamin D3 1 tab PO TID #0 08/06/11 04/19/18 [Calcium 600 + D(3)] folic acid 0.8 mg PO QDAY #0 08/06/11 04/19/18 vitamin B complex 1 tab PO BID #0 03/10/12 04/19/18 Previous Rx's Medication Instructions Recorded ramipril 2.5 mg PO QDAY #90 cap 07/12/17 aspirin 81 mg tablet,delayed 81 mg PO DAILY #90 tab 04/13/18 release gabapentin 100 mg capsule 100 mg PO DAILY PRN #30 cap 04/13/18 ranitidine 150 mg tablet 150 mg PO BEDTIME #90 tab 04/13/18 Synthroid 50 mcg tablet 50 mcg PO DAILY #90 tab NS 04/22/18 Allergies Allergy/AdvReac Type Severity Reaction Status Date / Time atorvastatin [ATORVASTATIN] Allergy Intermediate Verified 04/19/18 09:20 clopidogrel [CLOPIDOGREL] Allergy Intermediate Chest Verified 04/19/18 09:20 tightness, itching cephalexin [CEPHALEXIN] Allergy Mild Severe Verified 04/19/18 09:20 puritis chlorthalidone Allergy Mild Verified 04/19/18 09:20 [CHLORTHALIDONE] lisinopril [LISINOPRIL] Allergy Mild Verified 04/19/18 09:20 metoprolol [METOPROLOL] AdvReac Mild Shortness Verified 04/19/18 09:20 of breath, dizziness, nausea pravastatin [PRAVASTATIN] AdvReac Mild Joint Verified 04/19/18 09:20 pain, headache, blurred vision, diarrhea, nausea rosuvastatin [ROSUVASTATIN] AdvReac Mild Muscle Verified 04/19/18 09:20 cramps, leg pain PFSH Medical History CAD (coronary artery disease) (Chronic) Cataracts, bilateral (Chronic 2014) Concussion (Chronic 1999) GERD (gastroesophageal reflux disease) (Chronic 2008) Heart failure (Chronic) Hyperlipidemia (Chronic) Hypertension (Chronic) Hypothyroidism (Chronic) Peptic ulcer disease (Chronic 2008) Peripheral neuropathy (Chronic) Colon polyps (Resolved) Fall at home (Resolved 09/2014) H/O coronary angiogram (Resolved) Surgical History History of angioplasty (Resolved 2011) Status post colonoscopy (Resolved 2009) Status post colonoscopy (Resolved 12/29/13) Status post hysterectomy with oophorectomy (Resolved 1997) Social History household members: none Smoking Status: Never smoker alcohol intake: current Exam Initial Vital Signs Initial Vital Signs: Vital Signs Temperature 97.9 F 04/25/18 06:43 Pulse Rate 62 04/25/18 06:43 Respiratory Rate 15 04/25/18 06:43 Blood Pressure 153/63 H 04/25/18 06:43 Pulse Oximetry 99 04/25/18 06:43 Course Orders Ordered: ED Orders 04/25/18 06:45 XR chest 1V Stat EKG-12 Lead Stat 04/25/18 06:54 Complete Blood Count AUTO DIFF Stat Comprehensive Metabolic Panel Stat Lipase Stat Troponin & CK Cardiac Panel Stat 04/25/18 08:30 CT angio head and neck Stat 04/25/18 09:06 Troponin I Stat Discontinued Medications Aspirin (Aspirin Chew) 324 mg PO NOW ONE Stop: 04/25/18 06:45 Last Admin: 04/25/18 06:51 Dose: 324 mg Vital Signs - 8 hr 04/25/18 06:43 04/25/18 06:59 04/25/18 07:38 Temperature 97.9 F Pulse Rate 62 62 63 Respiratory Rate 15 17 16 Blood Pressure 153/63 H Blood Pressure [Right Arm] 153/63 H 135/64 H Pulse Oximetry 99 100 100 04/25/18 08:07 Temperature Pulse Rate 65 Respiratory Rate 18 Blood Pressure Blood Pressure [Right Arm] 154/73 H Pulse Oximetry MDM - Chest Pain Lab Data Result diagrams: 04/25/18 06:54 04/25/18 06:54 Lab Results 04/25/18 04/25/18 04/25/18 Range/Units 06:54 06:54 09:06 WBC 3.7 L (4.5-11.0) X10^3/uL RBC 4.67 (4.0-5.2) X10^6/uL Hgb 13.3 (12.0-16.0) g/dL Hct 39.7 (36-46) % MCV 85.0 (80-100) fL MCH 28.5 (26-34) PG MCHC 33.5 (30-36) % RDW 13.8 (11.6-14.8) % Plt Count 160 (150-400) X10^3/uL Neut % (Auto) 47.6 L (50-75) % Lymph % (Auto) 42.1 H (25-40) % [place] % (Auto) 7.2 (3-14) % Eos % (Auto) 1.8 L (2-4) % Baso % (Auto) 1.3 (0-2) % Neut # (Auto) 1700 L (1410-0670) /uL Sodium 141 (137-145) mmol/L Potassium 4.0 (3.4-5.1) mmol/L Chloride 102 (98-107) mmol/L Carbon Dioxide 31 (22-32) mmol/L BUN 15 (7-17) mg/dL Creatinine 0.80 (0.52-1.04) mg/dL Estimated GFR > 60.0 (>60) mL/min BUN/Creatinine Ratio 18.8 (6-22) Glucose 94 (80-110) mg/dL Calcium 9.6 (8.4-10.2) mg/dL Total Bilirubin 0.5 (0.2-1.3) mg/dL AST 22 (14-36) IU/L ALT 24 (9-52) IU/L Alkaline Phosphatase 74 (38-126) U/L Total Creatine Kinase 36 (30-135) U/L Troponin I < 0.012 < 0.012 (0.01-0.034) ng/mL Total Protein 6.9 (6.3-8.2) g/dL Albumin 4.1 (3.5-5.0) g/dL Globulin 2.8 (1.7-4.1) g/dL Albumin/Globulin Ratio 1.5 (1.0-2.8) Lipase 104 (23-300) U/L Discharge Plan Departure Prescriptions: No Action cholecalciferol (vitamin D3) [Vitamin D3] 2,000 unit Capsule 2,000 unit PO DAILY Qty: 0 RF: 0 calcium carbonate-vitamin D3 [Calcium 600 + D(3)] 600 mg calcium- 200 unit Capsule 1 tab PO TID Qty: 0 RF: 0 folic acid 800 mcg Tablet 0.8 mg PO QDAY Qty: 0 RF: 0 vitamin B complex Tablet 1 tab PO BID Qty: 0 RF: 0 ramipril 2.5 MG capsule 2.5 mg PO QDAY Qty: 90 RF: 3 levothyroxine [Synthroid] 50 mcg tablet 50 mcg PO DAILY Qty: 90 RF: 1 gabapentin 100 mg capsule 100 mg PO DAILY PRN (Reason: anxiety) Qty: 30 RF: 0 aspirin [Adult Aspirin Regimen] 81 mg tablet,delayed release (DR/EC) 81 mg PO DAILY Qty: 90 RF: 0 ranitidine HCl [Acid Control (ranitidine)] 150 mg tablet 150 mg PO BEDTIME Qty: 90 RF: 1
[2018-04-25 10:24] VITALS: BP 140/64; PULSE 74; RESP 16; TEMP 36.8; O2SAT 100
== END 2018-04-25 10:24 | disposition home or self-care (01) ==
PROVIDERS: Emergency Medicine; Emergency Provider Emergency Medicine; PCP Family Medicine
DX: R07.89 Other chest pain (principal)
CPT/HCPCS: 36415; 36591; 70496; 70498; 71045; 80053; 81003; 82550; 82553; 83690; 84484; 85025; 93005; 93010; 99284; 99285; Q9967

== ENCOUNTER → 2018-06-28 11:48 | Outpatient (CLI) | payer OTHER, SELFPAY ==
[2018-03-30 04:32] VITALS: BMI 16.6
--- NOTE | 2018-06-28 11:51 | DI.RAD.S_ITS ---
PROCEDURE: XR SHOULDER RT MIN 2V INDICATIONS: right shoulder pain, no injury TECHNIQUE: 2 views of the shoulder were acquired. COMPARISON: [facility], , SHOULDER MINIMUM 2VIEW RIGHT, 10/14/2016, 11:29. FINDINGS: Bones: No fractures or dislocations. No suspicious bony lesions. Visualized ribs appear intact. Severe acromioclavicular degenerative narrowing is present. There is a high riding appearance of the humeral head. Mild glenohumeral narrowing is also present. Soft tissues: No suspicious soft tissue calcifications. IMPRESSION: 1. Severe degenerative acromioclavicular narrowing. 2. High riding appearance of the humeral head, which can be indicative of rotator cuff pathology. Dictated by: Jayla Tony M.D. on 06/28/2018 at 15:57 Approved by: Jayla Tony M.D. on 06/28/2018 at 15:58
[2018-06-28 15:29] LABS: Thyroid Stimulating Hormone 1.29 uIU/mL (0.47-4.68)
== END ==
PROVIDERS: PCP Family Medicine; Visit Provider Family Medicine
DX: M25.511 Pain in right shoulder (principal); E03.9 Hypothyroidism, unspecified
CPT/HCPCS: 36415; 73030; 84443

== ENCOUNTER → 2019-02-07 10:23 | Outpatient (CLI) | payer OTHER, SELFPAY ==
[2018-03-30 04:32] VITALS: BMI 16.6
--- NOTE | 2019-02-07 10:24 | DI.RAD.S_ITS ---
PROCEDURE: XR ANKLE RT MIN 3V INDICATIONS: swollen painful ankle TECHNIQUE: 3 views of the ankle were acquired. COMPARISON: [facility], , ANKLE 3 VIEWS RIGHT, 10/28/2011, 14:50. FINDINGS: Bones: No fractures or dislocations. Ankle mortise is normally aligned. No suspicious bony lesions. Diffuse hindfoot and mid foot degeneration. There is tibiotalar degenerative joint disease. Osteopenia. Pes planus appearance however weight-bearing views would be more specific Soft tissues: No tibiotalar joint effusion. Achilles tendon appears normal. 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 This appears progressed since 10/28/11. Dictated by: Yonatan Peoples M.D. on 02/07/2019 at 11:17 Approved by: Yonatan Peoples M.D. on 02/07/2019 at 11:19
== END ==
PROVIDERS: PCP Family Medicine; Visit Provider Hospitalist
DX: M25.571 Pain in right ankle and joints of right foot (principal); M25.471 Effusion, right ankle; M19.071 Primary osteoarthritis, right ankle and foot
CPT/HCPCS: 73610

== ENCOUNTER 2019-02-08 12:27 | Emergency (ER) | payer OTHER, SELFPAY ==
[2018-03-30 04:32] VITALS: BMI 16.6
[2019-02-08 12:31] VITALS: BP 169/82; PULSE 81; RESP 18; TEMP 36.8; O2SAT 97; BMI 18.1
--- NOTE | 2019-02-08 12:43 | DI.CT.S_ITS ---
PROCEDURE: CT HEAD/BRAIN WO CON INDICATIONS: feels off, short terrm memory ogg TECHNIQUE: Noncontrast 4.5 mm thick angled axial sections acquired from the foramen magnum to the vertex, with coronal and sagittal reformats. For radiation dose reduction, the following was used: automated exposure control, adjustment of mA and/or kV according to patient size. COMPARISON: [facility], MR, MR STROKE, 03/30/2018, 11:43. [facility], CT, CT HEAD/BRAIN WO CON, 01/23/2018, 8:22. [facility], CT, HEAD WITHOUT CONTRAST, 04/22/2017, 8:55. [facility], CT, CT ANGIO HEAD AND NECK, 04/25/2018, 8:34. [facility], CT, CT HEAD/BRAIN WO CON, 03/30/2018, 2:56. FINDINGS: Image quality: Excellent. CSF spaces: Basal cisterns are patent. No extra-axial fluid collections. The ventricles are symmetric in size and shape. Brain: No intracranial bleeds or masses. There is cerebral volume loss for age, with resultant ventricular and sulcal prominence. There are periventricular and deep white matter chronic small vessel ischemic changes. There is intracranial internal carotid artery atherosclerosis. Skull and face: Calvarium and visualized facial bones appear intact, without suspicious lesions. Sinuses: Visualized sinuses and mastoids are clear. There is a prominent right sided kym bullosa seen, with associated moderate leftward nasal septal deviation. IMPRESSION: No acute intracranial process is seen. Stable from priors. Note is made of age-appropriate brain parenchymal volume loss and chronic small vessel ischemic changes. Dictated by: Ishan Siddiqui M.D. on 02/08/2019 at 12:12 Approved by: Ishan Siddiqui M.D. on 02/08/2019 at 12:14
--- NOTE | 2019-02-08 12:46 | ED.AMS ---
HPI - Altered Mental Status General Chief Complaint: Dizziness Stated Complaint: Feels off Time Seen by Provider: 02/08/19 12:32 Source: patient, EMS and old records reviewed Mode of arrival: EMS Limitations: no limitations History of Present Illness HPI narrative: An 83-year-old female comes to the emergency department feeling foggy and off. Patient states that she feels like she is not herself. She states she has difficulty articulating what the problem is exactly. She denies any headache currently. She states that her vision seems off, like she might need glasses but she can appreciate any obvious changes. She denies any difficulty with facial droop or speech. No chest pain, no shortness of breath. Maybe some slight nausea, no vomiting. No diarrhea or constipation, no urinary symptoms, no your urgency frequency or dysuria. Patient does states she has had some pain in her right foot, she saw her doctor yesterday. She has not had any fevers that she is aware of. Per patient and EMS she had a little bit of trouble remembering short-term events from today but did not seem to have any long-term memory issues. Patient was able to recall them with a little bit assistance. She was an O x3 was able to get the month, year without any issue. Related Data Home Medications Medication Instructions Recorded Confirmed cholecalciferol (vitamin D3) 2,000 unit PO DAILY #0 06/02/11 02/07/19 [Vitamin D3] calcium carbonate-vitamin D3 1 tab PO TID #0 08/06/11 02/07/19 [Calcium 600 + D(3)] folic acid 0.8 mg PO QDAY #0 08/06/11 02/07/19 vitamin B complex 1 tab PO BID #0 03/10/12 02/07/19 Previous Rx's Medication Instructions Recorded ramipril 2.5 mg PO QDAY #90 cap 07/12/17 aspirin 81 mg tablet,delayed 81 mg PO DAILY #90 tab 04/13/18 release gabapentin 100 mg capsule 100 mg PO DAILY PRN #30 cap 04/13/18 ranitidine 150 mg tablet 150 mg PO BEDTIME #90 tab 04/13/18 Synthroid 50 mcg tablet 50 mcg PO DAILY #90 tab NS 01/23/19 clindamycin HCl 300 mg PO Q6H 7 Days #28 cap 02/08/19 Allergies Allergy/AdvReac Type Severity Reaction Status Date / Time atorvastatin [ATORVASTATIN] Allergy Intermediate Verified 02/08/19 12:31 clopidogrel [CLOPIDOGREL] Allergy Intermediate Chest Verified 02/08/19 12:31 tightness, itching cephalexin [CEPHALEXIN] Allergy Mild Severe Verified 02/08/19 12:31 puritis chlorthalidone Allergy Mild Verified 02/08/19 12:31 [CHLORTHALIDONE] lisinopril [LISINOPRIL] Allergy Mild Verified 02/08/19 12:31 metoprolol [METOPROLOL] AdvReac Mild Shortness Verified 02/08/19 12:31 of breath, dizziness, nausea pravastatin [PRAVASTATIN] AdvReac Mild Joint Verified 02/08/19 12:31 pain, headache, blurred vision, diarrhea, nausea rosuvastatin [ROSUVASTATIN] AdvReac Mild Muscle Verified 02/08/19 12:31 cramps, leg pain Review of Systems Review of Systems ROS Unobtainable: All systems reviewed & are unremarkable except as noted in HPI and below Constitutional Denies chills, Denies excessive sweating, Denies fatigue, Denies fever(s), Denies frequent falls, Denies headache(s), Denies lethargy, Denies weakness and Reports other (Feels off) Eyes Reports blurry vision ENT Ears, Nose, Mouth, and Throat: Denies headache(s) Cardiovascular Denies chest pain, Denies syncope, Denies edema, Denies irregular heart rhythm, Denies lightheadedness, Denies palpitations, Denies dyspnea, Denies dyspnea on exertion and Denies orthopnea Respiratory Denies chest congestion, Denies cough, Denies dyspnea, Denies dyspnea on exertion and Denies wheezing Gastrointestinal Gastrointestinal: Denies abdominal pain, Denies change in bowel habits, Denies diarrhea, Reports nausea (Maybe slight per patient) and Denies vomiting Genitourinary Denies hematuria, Denies flank pain, Denies urinary incontinence and Denies urinary urgency Musculoskeletal Reports abnormal gait (Chronically), Denies muscle weakness, Denies numbness, Denies tingling and Reports other (Foot pain) Integumentary/Breasts Denies rash and Denies sores Neurologic Reports as per HPI, Denies abnormal speech, Reports abnormal gait (Chronically), Reports confusion (Describes foggy or feeling off), Denies syncope, Denies frequent falls, Denies headache(s), Denies focal weakness, Denies numbness, Denies sensory deficit, Denies tingling and Denies weakness Psychiatric Reports confusion (Describes foggy or feeling off) Endocrine Denies excessive sweating, Denies fatigue and Denies palpitations Allergic/Immunologic Denies wheezing Exam Narrative Exam Narrative: GEN: well nourished, well appearing elderly female, alert and oriented x 3, patient appears to be in mild distress. Patient appears anxious. HEENT: Atraumatic, pupils are equal round reactive to light, extraocular movements are intact, nares are clear, no facial droop. HEART: Regular rate and rhythm without murmur, clicks, rubs. Pulses are equal in upper and lower extremities LUNGS:Lungs clear to auscultation, no wheezes, rales, crackles, chest moves symmetrically ABD:bowel sounds normal, soft, non-tender, no guarding, rebound, rigidity, no masses noted, no hepatosplenomegaly :No CVA tenderness MSCL: Patient is some tenderness in her right foot she has some slight swelling in the right dorsum of the foot in comparison to the left. There is also little bit erythema over the dorsum of the foot and tracking up towards the ankle. Rate is slightly warm to touch. There appears to be a very superficial abrasion over the dorsum of the foot. No muscle atrophy, muscles strength 5/5 upper and lower extremities, full range of motion. NEURO:CN 2-12 intact, sensation normal, finger nose finger test normal, heel quinn test normal. Initial Vital Signs Initial Vital Signs: Vital Signs Temperature 98.2 F 02/08/19 12:31 Pulse Rate 81 02/08/19 12:31 Respiratory Rate 18 02/08/19 12:31 Blood Pressure 169/82 H 02/08/19 12:31 Pulse Oximetry 97 02/08/19 12:31 Scores NIH Stroke Scale Level of Conciousness: Alert, keenly responsive Ask month/age: Answers both questions correctly. Open/close eyes, close hand: Performs both tasks correctly Best gaze horizontal: Normal Visual hills: No visual loss Facial palsy: Normal symetrical movement Left arm drift: No drift for full 10 sec Right arm drift: No drift for full 10 sec Left leg drift: No drift for full 10 sec Right leg drift: No drift for full 10 sec Limb ataxia: Absent Sensory on face/arms/legs: Normal, no sensory loss Best language: No aphasia, normal Dysarthria: Normal Extinction or inattention: No abnormality Total NIH Stroke scale score: 0 Course Orders Ordered: ED Orders 02/08/19 12:29 EKG-12 Lead Routine 02/08/19 12:43 CT head/brain wo con Stat 02/08/19 13:00 Complete Blood Count AUTO DIFF Stat Comprehensive Metabolic Panel Stat Lactate (Lactic Acid) Stat Partial Thromboplastin Time Stat Procalcitonin Stat Prothrombin Time INR Stat Troponin I Stat 02/08/19 13:15 Blood Culture Stat 02/08/19 14:45 Urine Culture Stat Urine Drug Screen, Rapid Stat Urine Microscopic Stat Discontinued Medications Clindamycin HCl (Cleocin) 300 mg PO NOW ONE Stop: 02/08/19 15:12 Last Admin: 02/08/19 15:18 Dose: 300 mg Sodium Chloride (Normal Saline 0.9%) 1,000 mls @ 150 mls/hr IV CONT RYAN Last Infusion: 02/08/19 14:56 Dose: 0 mls/hr Admin: 02/08/19 13:13 Dose: 150 mls/hr Vital Signs - 8 hr 02/08/19 12:31 02/08/19 13:18 02/08/19 13:30 Temperature 98.2 F Pulse Rate 81 72 73 Respiratory Rate 18 19 20 Blood Pressure 169/82 H Blood Pressure [Left Arm] 131/61 143/73 H Pulse Oximetry 97 98 98 02/08/19 14:00 02/08/19 14:30 Temperature Pulse Rate 75 80 Respiratory Rate 18 20 Blood Pressure Blood Pressure [Left Arm] 145/72 H 163/81 H Pulse Oximetry 99 98 MDM - Altered Mental Status Medical Records Attestation: I reviewed the patient's medical records. Lab Data Attestation: I reviewed the patient's lab results. Result diagrams: 02/08/19 13:00 02/08/19 13:00 Lab Results 02/08/19 02/08/19 02/08/19 Range/Units 13:00 13:00 13:00 WBC 4.8 (4.5-11.0) X10^3/uL RBC 4.63 (4.0-5.2) X10^6/uL Hgb 12.8 (12.0-16.0) g/dL Hct 38.9 (36-46) % MCV 84.0 (80-100) fL MCH 27.7 (26-34) PG MCHC 32.9 (30-36) % RDW 13.8 (11.6-14.8) % Plt Count 191 (150-400) X10^3/uL Neut % (Auto) 71.7 (50-75) % Lymph % (Auto) 20.6 L (25-40) % Esmeralda % (Auto) 6.1 (3-14) % Eos % (Auto) 0.7 L (2-4) % Baso % (Auto) 0.9 (0-2) % Neut # (Auto) 3500 (1442-8065) /uL Lymph # (Auto) 1000 L (8382-8920) /uL Esmeralda # (Auto) 300 (0-900) /uL Eos # (Auto) 0 (0-450) /uL Baso # (Auto) 0 (0-100) /uL PT 10.4 (10.1-12.7) SECONDS INR 0.9 (0.9-1.3) APTT 29 (26.4-36.2) SECONDS Sodium 137 (137-145) mmol/L Potassium 4.0 (3.4-5.1) mmol/L Chloride 103 (98-107) mmol/L Carbon Dioxide 27 (22-32) mmol/L BUN 18 H (7-17) mg/dL Creatinine 1.00 (0.52-1.04) mg/dL Estimated GFR 53.0 L (>60) mL/min BUN/Creatinine Ratio 18.0 (6-22) Glucose 95 (80-110) mg/dL Lactate (0.7-2.1) mmol/L Calcium 9.4 (8.4-10.2) mg/dL Total Bilirubin 0.5 (0.2-1.3) mg/dL AST 24 (14-36) IU/L ALT 13 (9-52) IU/L Alkaline Phosphatase 96 (38-126) U/L Troponin I < 0.012 (0.01-0.034) ng/mL Total Protein 7.2 (6.3-8.2) g/dL Albumin 4.2 (3.5-5.0) g/dL Globulin 3.0 (1.7-4.1) g/dL Albumin/Globulin Ratio 1.4 (1.0-2.8) Procalcitonin (<0.5) ng/mL Urine RBC (0-5/HPF) Urine WBC (0-5/HPF) Urine Bacteria (None) Ur Culture Indicated? Urine Opiates Screen (Negative) Ur Oxycodone Screen (Negative) Urine Methadone Screen (Negative) Ur Barbiturates Screen (Negative) U Tricyclic Antidepress (Negative) Ur Phencyclidine Scrn (Negative) Ur Amphetamines Screen (Negative) U Methamphetamines Scrn (Negative) Ur MDMA Scrn (Ecstasy) (Negative) U Benzodiazepines Scrn (Negative) Urine Cocaine Screen (Negative) U Marijuana (THC) Screen (Negative) 02/08/19 02/08/19 02/08/19 Range/Units 13:00 13:00 14:45 WBC (4.5-11.0) X10^3/uL RBC (4.0-5.2) X10^6/uL Hgb (12.0-16.0) g/dL Hct (36-46) % MCV (80-100) fL MCH (26-34) PG MCHC (30-36) % RDW (11.6-14.8) % Plt Count (150-400) X10^3/uL Neut % (Auto) (50-75) % Lymph % (Auto) (25-40) % Esmeralda % (Auto) (3-14) % Eos % (Auto) (2-4) % Baso % (Auto) (0-2) % Neut # (Auto) (2381-1454) /uL Lymph # (Auto) (9726-9838) /uL Esmeralda # (Auto) (0-900) /uL Eos # (Auto) (0-450) /uL Baso # (Auto) (0-100) /uL PT (10.1-12.7) SECONDS INR (0.9-1.3) APTT (26.4-36.2) SECONDS Sodium (137-145) mmol/L Potassium (3.4-5.1) mmol/L Chloride (98-107) mmol/L Carbon Dioxide (22-32) mmol/L BUN (7-17) mg/dL Creatinine (0.52-1.04) mg/dL Estimated GFR (>60) mL/min BUN/Creatinine Ratio (6-22) Glucose (80-110) mg/dL Lactate 0.7 (0.7-2.1) mmol/L Calcium (8.4-10.2) mg/dL Total Bilirubin (0.2-1.3) mg/dL AST (14-36) IU/L ALT (9-52) IU/L Alkaline Phosphatase (38-126) U/L Troponin I (0.01-0.034) ng/mL Total Protein (6.3-8.2) g/dL Albumin (3.5-5.0) g/dL Globulin (1.7-4.1) g/dL Albumin/Globulin Ratio (1.0-2.8) Procalcitonin < 0.05 (<0.5) ng/mL Urine RBC (0-5/HPF) Urine WBC (0-5/HPF) Urine Bacteria (None) Ur Culture Indicated? Urine Opiates Screen Negative (Negative) Ur Oxycodone Screen Negative (Negative) Urine Methadone Screen Negative (Negative) Ur Barbiturates Screen Negative (Negative) U Tricyclic Antidepress Negative (Negative) Ur Phencyclidine Scrn Negative (Negative) Ur Amphetamines Screen Negative (Negative) U Methamphetamines Scrn Negative (Negative) Ur MDMA Scrn (Ecstasy) Negative (Negative) U Benzodiazepines Scrn Negative (Negative) Urine Cocaine Screen Negative (Negative) U Marijuana (THC) Screen Negative (Negative) 02/08/19 Range/Units 14:45 WBC (4.5-11.0) X10^3/uL RBC (4.0-5.2) X10^6/uL Hgb (12.0-16.0) g/dL Hct (36-46) % MCV (80-100) fL MCH (26-34) PG MCHC (30-36) % RDW (11.6-14.8) % Plt Count (150-400) X10^3/uL Neut % (Auto) (50-75) % Lymph % (Auto) (25-40) % Esmeralda % (Auto) (3-14) % Eos % (Auto) (2-4) % Baso % (Auto) (0-2) % Neut # (Auto) (0809-5712) /uL Lymph # (Auto) (1746-1054) /uL Esmeralda # (Auto) (0-900) /uL Eos # (Auto) (0-450) /uL Baso # (Auto) (0-100) /uL PT (10.1-12.7) SECONDS INR (0.9-1.3) APTT (26.4-36.2) SECONDS Sodium (137-145) mmol/L Potassium (3.4-5.1) mmol/L Chloride (98-107) mmol/L Carbon Dioxide (22-32) mmol/L BUN (7-17) mg/dL Creatinine (0.52-1.04) mg/dL Estimated GFR (>60) mL/min BUN/Creatinine Ratio (6-22) Glucose (80-110) mg/dL Lactate (0.7-2.1) mmol/L Calcium (8.4-10.2) mg/dL Total Bilirubin (0.2-1.3) mg/dL AST (14-36) IU/L ALT (9-52) IU/L Alkaline Phosphatase (38-126) U/L Troponin I (0.01-0.034) ng/mL Total Protein (6.3-8.2) g/dL Albumin (3.5-5.0) g/dL Globulin (1.7-4.1) g/dL Albumin/Globulin Ratio (1.0-2.8) Procalcitonin (<0.5) ng/mL Urine RBC None seen (0-5/HPF) Urine WBC 1-5/hpf (0-5/HPF) Urine Bacteria None seen (None) Ur Culture Indicated? Specimen cultured Urine Opiates Screen (Negative) Ur Oxycodone Screen (Negative) Urine Methadone Screen (Negative) Ur Barbiturates Screen (Negative) U Tricyclic Antidepress (Negative) Ur Phencyclidine Scrn (Negative) Ur Amphetamines Screen (Negative) U Methamphetamines Scrn (Negative) Ur MDMA Scrn (Ecstasy) (Negative) U Benzodiazepines Scrn (Negative) Urine Cocaine Screen (Negative) U Marijuana (THC) Screen (Negative) Urine Dip Bedside Urine Glucose Negative Bedside Urine Bilirubin - Negative Bedside Urine Ketone - Negative Urine Specific [place] 1.015 Bedside Urine Occult Blood - Negative Bedside Urine pH 6.5 Bedside Urine Protein - Negative Bedside Urine Urobilinogen - Negative Bedside Urine Nitrite - Negative Bedside Urine Leukocytes + [address] scan - head: Radiologist's impression: Kaylene Tran 83 [address] [place] [address] CT Scan Report Signed Patient: Kaylene Tran [facility]#: [id number] : 5Acct:[id number] Age/Sex: 83 / FDate of Service: 02/08/19 Loc: ED Accession Number: [id number] Procedure: CT head/brain wo con Ordering Provider: Lakshmi Grossman D.O. PROCEDURE: CT HEAD/BRAIN WO CON INDICATIONS: feels off, short terrm memory ogg TECHNIQUE: Noncontrast 4.5 mm thick angled axial sections acquired from the foramen magnum to the vertex, with coronal and sagittal reformats. For radiation dose reduction, the following was used: automated exposure control, adjustment of mA and/or kV according to patient size. COMPARISON: [facility], MR, MR STROKE, 03/30/2018, 11:43. [facility], CT, CT HEAD/BRAIN WO CON, 01/23/2018, 8:22. [facility], CT, HEAD WITHOUT CONTRAST, 04/22/2017, 8:55. [facility], CT, CT ANGIO HEAD AND NECK, 04/25/2018, 8:34. [facility], CT, CT HEAD/BRAIN WO CON, 03/30/2018, 2:56. FINDINGS: Image quality: Excellent. CSF spaces: Basal cisterns are patent. No extra-axial fluid collections. The ventricles are symmetric in size and shape. Brain: No intracranial bleeds or masses. There is cerebral volume loss for age, with resultant ventricular and sulcal prominence. There are periventricular and deep white matter chronic small vessel ischemic changes. There is intracranial internal carotid artery atherosclerosis. Skull and face: Calvarium and visualized facial bones appear intact, without suspicious lesions. Sinuses: Visualized sinuses and mastoids are clear. There is a prominent right sided kym bullosa seen, with associated moderate leftward nasal septal deviation. IMPRESSION: No acute intracranial process is seen. Stable from priors. Note is made of age-appropriate brain parenchymal volume loss and chronic small vessel ischemic changes. Dictated by: Ishan Siddiqui M.D. on 02/08/2019 at 12:12 Approved by: Ishan Siddiqui M.D. on 02/08/2019 at 12:14 ECG Data Attestation: I personally reviewed and interpreted this ECG as follows: Prior ECG tracings: available for review Interpretation: Sinus rhythm with a rate of 75 P are 171 QRS of 124 and QTC of 413. Patient has right bundle branch block which appears similar to 04/25/2018. MDM Narrative Medical decision making narrative: Patient is feeling much better in the department. We discussed looks like she is developing a cellulitis in her foot. Started on clindamycin orally. She did have some leukocyte esterase in her urine was sent for urine culture. She did not have any focal changes concerning for stroke on exam or by history. She did have any other changes suggesting a cardiac or pulmonary cause of her symptomatology today. Notes from patient's past visits imply that she has had similar type symptoms in the past regarding her concerns for TIA today. Discharge Plan Departure Patient Disposition: Home Clinical Impression: Cellulitis of foot, right Discharge Date/Time: 02/08/19 15:27 Interventions: ED Discharge Assessment Last Done: 02/08/19 15:24 Instructions: DI for Cellulitis -- Adult Activity Restrictions/Additional Instructions: Follow-up with your physician in the next 3-5 days for recheck if your symptoms have not resolved. Take antibiotics until they are completely gone. Your prescription was sent to [facility]. Your urine was sent for urine culture, does not show clear signs of infection. This takes 24-48 hours to result if positive received a phone call. You may take Tylenol up to a 1000 mg every 8 hours as needed for pain Return to the emergency department for fevers greater than 100.4 F, redness that is rapidly spreading, increasing swelling, rapidly increasing pain, new numbness, weakness, persistent vomiting, new chest pain or shortness of breath or other new or concerning symptoms. Prescriptions: New clindamycin HCl 300 mg capsule 300 mg PO Q6H 7 Days Qty: 28 RF: 0 No Action cholecalciferol (vitamin D3) [Vitamin D3] 2,000 unit Capsule 2,000 unit PO DAILY Qty: 0 RF: 0 calcium carbonate-vitamin D3 [Calcium 600 + D(3)] 600 mg calcium- 200 unit Capsule 1 tab PO TID Qty: 0 RF: 0 folic acid 800 mcg Tablet 0.8 mg PO QDAY Qty: 0 RF: 0 vitamin B complex Tablet 1 tab PO BID Qty: 0 RF: 0 ramipril 2.5 MG capsule 2.5 mg PO QDAY Qty: 90 RF: 3 levothyroxine [Synthroid] 50 mcg tablet 50 mcg PO DAILY Qty: 90 RF: 1 gabapentin 100 mg capsule 100 mg PO DAILY PRN (Reason: anxiety) Qty: 30 RF: 0 aspirin [Adult Aspirin Regimen] 81 mg tablet,delayed release (DR/EC) 81 mg PO DAILY Qty: 90 RF: 0 ranitidine HCl [Acid Control (ranitidine)] 150 mg tablet 150 mg PO BEDTIME Qty: 90 RF: 1 Referrals: Priya Ramsay MD [Primary Care Provider] -
--- NOTE | 2019-02-08 13:02 | PC.NURSE ---
pt reports, off balance since surgery 2014, noted right lower foot with redness,swelling and hot to touch,+distal cms intact. pt denies chest pain,shortness of breath, fever,vomiting or diarrhea, denies uti sxs.
[2019-02-08 13:08] LABS: Add Manual Diff / Slide Review NO; Basophils Absolute Auto 0 /uL (0-100); Basophils Percent Auto 0.9 % (0-2); Eosinophils Absolute Auto 0 /uL (0-450); Eosinophils Percent Auto 0.7 % (2-4); Hematocrit 38.9 % (36-46); Hemoglobin 12.8 g/dL (12.0-16.0); Lymphocytes Absolute Auto 1000 /uL (1100-4500); Lymphocytes Percent Auto 20.6 % (25-40); Mean Corpuscular HGB Conc 32.9 % (30-36); Mean Corpuscular Hemoglobin 27.7 PG (26-34); Monocytes Absolute Auto 300 /uL (0-900); Monocytes Percent Auto 6.1 % (3-14); Neutrophils Absolute Auto 3500 /uL (1500-7000); Neutrophils Percent Auto 71.7 % (50-75); Platelet Count 191 X10^3/uL (150-400); Red Blood Cell Count 4.63 X10^6/uL (4.0-5.2); Red Cell Distribution Width 13.8 % (11.6-14.8); White Blood Cell Count 4.8 X10^3/uL (4.5-11.0)
[2019-02-08] MEDS: SODIUM CHLORIDE 0.9% 1,000 ML 150 ML IV (13:13)
--- NOTE | 2019-02-08 13:13 | PC.NURSE ---
for 2nd blood culture
[2019-02-08 13:15] LABS: INR 0.9 (0.9-1.3); Prothrombin Time 10.4 SECONDS (10.1-12.7)
[2019-02-08 13:18] VITALS: BP 131/61; PULSE 72; RESP 19; O2SAT 98
[2019-02-08 13:18] LABS: PTT Partial Thromboplastin Tim 29 SECONDS (26.4-36.2)
[2019-02-08 13:20] LABS: Lactate (Lactic Acid) 0.7 mmol/L (0.7-2.1)
[2019-02-08 13:21] LABS: Alanine Aminotransferase 13 IU/L (9-52); Albumin 4.2 g/dL (3.5-5.0); Albumin Globulin Ratio 1.4 (1.0-2.8); Alkaline Phosphatase 96 U/L (38-126); Aspartate Aminotransferase 24 IU/L (14-36); Bilirubin Total 0.5 mg/dL (0.2-1.3); Blood Urea Nitrogen 18 mg/dL (7-17); Calcium 9.4 mg/dL (8.4-10.2); Carbon Dioxide 27 mmol/L (22-32); Chloride 103 mmol/L (98-107); Glucose 95 mg/dL (80-110); HEMOLYSIS < 15 (0-50); Sodium 137 mmol/L (137-145); Total Protein 7.2 g/dL (6.3-8.2)
[2019-02-08 13:30] VITALS: BP 143/73; PULSE 73; RESP 20; O2SAT 98
[2019-02-08 13:33] LABS: Troponin I < 0.012 ng/mL (0.01-0.034)
[2019-02-08 13:38] LABS: Procalcitonin < 0.05 ng/mL (<0.5)
[2019-02-08 14:00] VITALS: BP 145/72; PULSE 75; RESP 18; O2SAT 99
[2019-02-08 14:30] VITALS: BP 163/81; PULSE 80; RESP 20; O2SAT 98
[2019-02-08 15:02] LABS: Urine Amphetamines Negative (Negative); Urine Barbiturates Negative (Negative); Urine Benzodiazepines Negative (Negative); Urine Cocaine Negative (Negative); Urine MDMA Negative (Negative); Urine Methadone Negative (Negative); Urine Methamphetamines Negative (Negative); Urine Morphine/Opi cutoff 2000 Negative (Negative); Urine Oxycodone Negative (Negative); Urine Phencyclidine Negative (Negative); Urine Tetrahydrocannabinol Negative (Negative); Urine Tricyclic Antidepressant Negative (Negative)
[2019-02-08] MEDS: CLINDAMYCIN 150 MG CAPSULE 300 MG PO (15:18)
[2019-02-08 15:31] LABS: Bacteria Urine None Seen; RBC Urine None Seen (0-5/HPF)
[2019-02-08 15:41] LABS: Culture Indicated Urine Specimen Cultured; WBC Urine 1-5/HPF (0-5/HPF)
== END 2019-02-08 15:27 | disposition home or self-care (01) ==
PROVIDERS: Emergency Provider Emergency Medicine; PCP Family Medicine
DX: L03.115 Cellulitis of right lower limb (principal); R41.82 Altered mental status, unspecified; R42 Dizziness and giddiness; R41.3 Other amnesia
CPT/HCPCS: 36415; 36591; 70450; 80053; 80305; 81003; 81015; 83605; 84145; 84484; 85025; 85610; 85730; 87040; 87086; 93005; 93010; 96360; 96361; 99283; 99285

== ENCOUNTER → 2019-03-08 11:04 | Outpatient (CLI) | payer OTHER, SELFPAY ==
[2018-03-30 04:32] VITALS: BMI 16.6
--- NOTE | 2019-03-08 11:06 | DI.RAD.S_ITS ---
PROCEDURE: XR ANKLE RT MIN 3V INDICATIONS: right ankle/foot pain with swelling, slightly erythematous TECHNIQUE: 3 views of the ankle were acquired. COMPARISON: [facility], CR, XR ANKLE RT MIN 3V, 02/07/2019, 10:25. FINDINGS: Bones: There is diffuse osteopenia. Osteoarthritic changes are noted throughout ankle joints and visualized midfoot and hindfoot joints. No gross acute fractures or dislocations. Ankle mortise is normally aligned. No suspicious bony lesions. Soft tissues: No tibiotalar joint effusion. Achilles tendon appears normal. IMPRESSION: Osteopenia. Ankle joint osteoarthritis. No gross acute ankle fracture or dislocation. Dictated by: Oliver Curran M.D. on 03/08/2019 at 13:21 Approved by: Oliver Curran M.D. on 03/08/2019 at 13:22
--- NOTE | 2019-03-08 11:06 | DI.RAD.S_ITS ---
PROCEDURE: XR FOOT RT MIN 3V INDICATIONS: right ankle/foot pain, erythematous TECHNIQUE: 3 views of the foot were acquired. COMPARISON: [facility], , FOOT 3V RIGHT, 05/01/2013, 11:14. FINDINGS: Bones: There is diffuse osteopenia. Mild hallux valgus is seen. Osteoarthritic changes are noted throughout right foot and ankle joints. Dorsal exostosis involving anterior superior portion of talus is seen. Subtle sclerosis and radiolucency involving lateral portion of third metatarsal base and fourth metatarsal base are seen. No suspicious bony lesions. Soft tissues: No tibiotalar joint effusion. Achilles tendon appears normal. IMPRESSION: Osteopenia. Suggestion of subtle nondisplaced fractures involving the fourth and possibly third metatarsal bases, suggest clinical correlation. No other fracture or dislocation is seen. Osteoarthritis throughout right foot. Dictated by: Oliver Curran M.D. on 03/08/2019 at 13:14 Approved by: Oliver Curran M.D. on 03/08/2019 at 13:19
== END ==
PROVIDERS: PCP Family Medicine; Visit Provider Family Medicine
DX: M25.571 Pain in right ankle and joints of right foot (principal); M85.80 Other specified disorders of bone density and structure, unspecified site; M20.11 Hallux valgus (acquired), right foot; M19.071 Primary osteoarthritis, right ankle and foot
CPT/HCPCS: 73610; 73630

== ENCOUNTER → 2019-06-01 10:05 | Outpatient (CLI) | payer OTHER, SELFPAY ==
[2018-03-30 04:32] VITALS: BMI 16.6
[2019-06-04 15:01] LABS: Intrinsic Factor Blocking Aby NEGATIVE
[2019-06-05 08:47] LABS: Homocysteine 13.1 umol/L (< 10.4)
[2019-06-06 19:04] LABS: Methylmalonic Acid 294 nmol/L (87-318)
== END ==
PROVIDERS: PCP Family Medicine; Visit Provider Family Medicine
DX: E53.8 Deficiency of other specified B group vitamins (principal)
CPT/HCPCS: 36415; 83090; 83921; 86340

== ENCOUNTER → 2020-05-21 11:16 | Outpatient (CLI) | payer OTHER, SELFPAY ==
[2018-03-30 04:32] VITALS: BMI 16.6
[2020-05-21 11:50] LABS: Add Manual Diff / Slide Review NO; Basophils Absolute Auto 0 /uL (0-100); Basophils Percent Auto 0.8 % (0-2); Eosinophils Absolute Auto 0 /uL (0-450); Eosinophils Percent Auto 0.8 % (2-4); Hematocrit 41.4 % (36-46); Hemoglobin 13.7 g/dL (12.0-16.0); Lymphocytes Absolute Auto 1100 /uL (1100-4500); Lymphocytes Percent Auto 22.4 % (25-40); Mean Corpuscular HGB Conc 33.1 % (30-36); Mean Corpuscular Hemoglobin 27.7 PG (26-34); Mean Corpuscular Volume 83.5 fL (80-100); Monocytes Absolute Auto 300 /uL (0-900); Monocytes Percent Auto 5.7 % (3-14); Neutrophils Absolute Auto 3500 /uL (1500-7000); Neutrophils Percent Auto 70.3 % (50-75); Platelet Count 198 X10^3/uL (150-400); Red Blood Cell Count 4.95 X10^6/uL (4.0-5.2); Red Cell Distribution Width 13.9 % (11.6-14.8)
[2020-05-21 12:01] LABS: Alanine Aminotransferase 16 IU/L (<35); Albumin 4.4 g/dL (3.5-5.0); Albumin Globulin Ratio 1.4 (1.0-2.8); Alkaline Phosphatase 68 U/L (38-126); Aspartate Aminotransferase 28 IU/L (14-36); BUN Creatinine Ratio 26.5 (6-22); Bilirubin Total 0.6 mg/dL (0.2-1.3); Blood Urea Nitrogen 22 mg/dL (7-17); Calcium 9.5 mg/dL (8.4-10.2); Carbon Dioxide 33 mmol/L (22-32); Chloride 101 mmol/L (98-107); Estimated Glomerular Filt Rate > 60.0 mL/min (>60); Globulin 3.1 g/dL (1.7-4.1); Glucose 98 mg/dL (80-110); HEMOLYSIS < 15 (0-50); Potassium 4.3 mmol/L (3.4-5.1); Sodium 139 mmol/L (137-145); Total Protein 7.5 g/dL (6.3-8.2)
[2020-05-21 12:37] LABS: Free T3, Triiodothyronine Free 2.84 pg/mL (2.77-5.27)
[2020-05-21 12:51] LABS: Thyroid Stimulating Hormone 1.65 uIU/mL (0.47-4.68)
[2020-05-21 13:14] LABS: Free T4, Direct Thyroxine 1.38 ng/dL (0.78-2.19)
== END ==
PROVIDERS: PCP Family Medicine; Referring Provider Family Medicine; Visit Provider Family Medicine
DX: R63.4 Abnormal weight loss (principal); I10 Essential (primary) hypertension; E03.9 Hypothyroidism, unspecified
CPT/HCPCS: 36415; 80053; 84439; 84443; 84481; 85025

== ENCOUNTER → 2020-12-31 10:26 | Outpatient (CLI) | payer MEDICARE, SELFPAY ==
[2018-03-30 04:32] VITALS: BMI 16.6
[2020-12-31] MEDS: COVID-19 VACC #1, MRNA(MOD) 100 MCG/0.5 ML VIAL IM (10:37)
== END ==
PROVIDERS: PCP Family Medicine; Visit Provider Internal Medicine
DX: Z23 Encounter for immunization (principal)
CPT/HCPCS: 0011A; 91301

== ENCOUNTER → 2021-01-29 10:33 | Outpatient (CLI) | payer MEDICARE, SELFPAY ==
[2018-03-30 04:32] VITALS: BMI 16.6
[2021-01-29] MEDS: COVID-19 VACC #2, MRNA(MOD) 100 MCG/0.5 ML VIAL IM (10:47)
== END ==
PROVIDERS: PCP Family Medicine; Visit Provider Internal Medicine
DX: Z23 Encounter for immunization (principal)
CPT/HCPCS: 0012A; 91301

== ENCOUNTER 2021-06-26 13:36 | Emergency (ER) | payer OTHER, SELFPAY ==
[2018-03-30 04:32] VITALS: BMI 16.6
[2021-06-26] VITALS (12 sets, daily range): BP systolic 142–188; BP diastolic 65–86; PULSE 69–80; RESP 16–20; TEMP 36.8; O2SAT 94–100
--- NOTE | 2021-06-26 13:43 | DI.RAD.S_ITS ---
PROCEDURE: XR CHEST 1V INDICATIONS: Chest pain TECHNIQUE: One view of the chest was acquired. COMPARISON: [facility], CR, XR CHEST 1V, 04/25/2018, 6:52. FINDINGS: Surgical changes and devices: None. Lungs and pleura: Biapical pleural thickening/scarring. Evidence of emphysematous change. No consolidation, pleural effusions or pneumothorax. Mediastinum: Calcified atheromatous change of the aorta. Heart size is normal. Bones and chest wall: No suspicious bony lesions. Overlying soft tissues appear unremarkable. IMPRESSION: No cardiopulmonary abnormality. Dictated by: Benson Villarreal M.D. on 06/26/2021 at 14:18 Approved by: Benson Villarreal M.D. on 06/26/2021 at 14:22
[2021-06-26 13:51] LABS: Add Manual Diff / Slide Review NO; Basophils Absolute Auto 100 /uL (0-100); Basophils Percent Auto 1.1 % (0-2); Eosinophils Absolute Auto 100 /uL (0-450); Eosinophils Percent Auto 1.6 % (2-4); Hematocrit 37.7 % (36-46); Hemoglobin 12.4 g/dL (12.0-16.0); Lymphocytes Absolute Auto 1900 /uL (1100-4500); Lymphocytes Percent Auto 32.5 % (25-40); Mean Corpuscular HGB Conc 32.8 % (30-36); Mean Corpuscular Hemoglobin 27.1 PG (26-34); Mean Corpuscular Volume 82.5 fL (80-100); Monocytes Absolute Auto 400 /uL (0-900); Monocytes Percent Auto 6.2 % (3-14); Neutrophils Absolute Auto 3400 /uL (1500-7000); Neutrophils Percent Auto 58.6 % (50-75); Platelet Count 172 X10^3/uL (150-400); Red Blood Cell Count 4.57 X10^6/uL (4.0-5.2); Red Cell Distribution Width 13.7 % (11.6-14.8); White Blood Cell Count 5.8 X10^3/uL (4.5-11.0)
[2021-06-26 14:11] LABS: Alanine Aminotransferase 17 IU/L (<35); Albumin 4.2 g/dL (3.5-5.0); Albumin Globulin Ratio 1.5 (1.0-2.8); Alkaline Phosphatase 84 U/L (38-126); Aspartate Aminotransferase 28 IU/L (14-36); BUN Creatinine Ratio 26.7 (6-22); Bilirubin Total 0.3 mg/dL (0.2-1.3); Blood Urea Nitrogen 20 mg/dL (7-17); Calcium 9.2 mg/dL (8.4-10.2); Carbon Dioxide 31 mmol/L (22-32); Chloride 103 mmol/L (98-107); Creatine Kinase 27 U/L (30-135); Estimated Glomerular Filt Rate > 60.0 mL/min (>60); Globulin 2.8 g/dL (1.7-4.1); Glucose 142 mg/dL (80-110); HEMOLYSIS 35 (0-50); Lipase 107 U/L (23-300); Potassium 4.3 mmol/L (3.4-5.1); Sodium 138 mmol/L (137-145)
[2021-06-26 14:26] LABS: Troponin I < 0.012 ng/mL (0.01-0.034)
--- NOTE | 2021-06-26 14:37 | ED_ITS ---
HPI - General Adult General Chief complaint: Dizziness Stated complaint: L-arm weakness/numbness Time Seen by Provider: 06/26/21 14:00 Source: EMS Mode of arrival: EMS History of Present Illness HPI narrative: 86-year-old woman who lives independently with a history of hypothyroidism and hypertension as well as prior NC presents with chest pain. She notes that it started shortly after lunch which was 11 30 today. Initially was some mild chest pain radiating to her shoulder, she initially points to her right shoulder and the right side of her head. She states this is what her prior NC felt like. As she is continuing to describe the pain she states that it continued until she got to the emergency room, approximately 2-1/2 hours l ater and then resolved without any further intervention. She then describes left-sided chest shoulder jaw and head pain. When asked her to clarify left verses right side she states that she was a bit anxious and somewhat confused. At this time she is pain free. She has no complaints of dyspnea or orthopnea, no increased lower extremity edema. Has not noticed palpitations, no fever, cough, vomiting, diarrhea, abdominal pain, flank pain, hematuria or dysuria, no diarrhea or constipation. Related Data Home Medications Medication Instructions Recorded Confirmed cholecalciferol (vitamin D3) 50 2,000 unit PO DAILY #0 06/02/11 10/23/20 mcg (2,000 unit) capsule (Vitamin D3) calcium carbonate-vitamin D3 600 1 tab PO TID #0 08/06/11 10/23/20 mg calcium-200 unit capsule (Calcium 600 + D(3)) folic acid 800 mcg tablet 0.8 mg PO QDAY #0 08/06/11 10/23/20 vitamin B complex 1 tab PO BID #0 03/10/12 10/23/20 Previous Rx's Medication Instructions Recorded aspirin 81 mg tablet,delayed 81 mg PO DAILY #90 tab 04/13/18 release (Adult Aspirin Regimen) Synthroid 50 mcg tablet See Rx Instructions .ROUTE 12/27/20 (levothyroxine) .COMPLEX #90 tab NS ramipril 2.5 mg capsule See Rx Instructions .ROUTE 04/03/21 .COMPLEX #90 cap Ensure Nutritional Replacement #90 ea 04/21/21 Allergies Allergy/AdvReac Type Severity Reaction Status Date / Time atorvastatin [ATORVASTATIN] Allergy Intermediate Verified 06/26/21 13:51 clopidogrel [CLOPIDOGREL] Allergy Intermediate Chest Verified 06/26/21 13:51 tightness, itching cephalexin [CEPHALEXIN] Allergy Mild Severe Verified 06/26/21 13:51 puritis chlorthalidone Allergy Mild Verified 06/26/21 13:51 [CHLORTHALIDONE] lisinopril [LISINOPRIL] Allergy Mild Verified 06/26/21 13:51 metoprolol [METOPROLOL] AdvReac Mild Shortness Verified 06/26/21 13:51 of breath, dizziness, nausea pravastatin [PRAVASTATIN] AdvReac Mild Joint Verified 06/26/21 13:51 pain, headache, blurred vision, diarrhea, nausea rosuvastatin [ROSUVASTATIN] AdvReac Mild Muscle Verified 06/26/21 13:51 cramps, leg pain Review of Systems Review of Systems Narrative: Remainder of complete review of systems is otherwise unremarkable except for that included in the HPI. Patient History Medical History CAD (coronary artery disease) Cataracts, bilateral (2014) Colon polyps Concussion (1999) Fall at home (09/2014) GERD (gastroesophageal reflux disease) (2008) H/O coronary angiogram Heart failure Hyperlipidemia Hypertension Hypothyroidism Peptic ulcer disease (2008) Peripheral neuropathy Traumatic hematoma of right orbit (11/30/14) Surgical History History of angioplasty (2011) Status post colonoscopy (2009) Status post colonoscopy (12/29/13) Status post hysterectomy with oophorectomy (1997) Family History Brother Coronary artery disease Myocardial infarction Father Coronary artery disease Mother Coronary artery disease Social History marital status: number of children: 2 household members: none lives independently: Yes caregiver/support person: No housing: house Smoking Status: Never smoker second hand exposure: No alcohol intake: current substance use type: does not use Smoking Status: Never smoker alcohol intake frequency: a few times a week Substance Use Type: does not use Exam Narrative Exam Narrative: General: somewhat frail, but in no acute distress. HEENT: Moist mucous membranes, normal sclera with reactive pupils, Neck: No JVD, supple Respiratory: Lungs are clear to auscultation, no wheezing no rales no rhonchi. Full and symmetrical air movement Cardiac: Regular rate and rhythm no murmurs no bruits Abdomen: Soft, nontender, good bowel tones, no flank pain Skin: Warm and dry, no rashes Neurologic: Grossly neurologically intact with no obvious asymmetries or abnormalities Extremities: No trauma, well perfused Psych: Cooperative, appropriate insight and affect Initial Vital Signs Initial Vital Signs: Vital Signs Temperature 98.2 F 06/26/21 13:46 Pulse Rate 74 06/26/21 13:46 Respiratory Rate 16 06/26/21 13:46 Blood Pressure 142/65 H 06/26/21 13:46 Pulse Oximetry 98 06/26/21 13:46 Course Orders Ordered: ED Orders 06/26/21 13:43 XR chest 1V Stat EKG-12 Lead Stat 06/26/21 13:44 Complete Blood Count AUTO DIFF Stat Comprehensive Metabolic Panel Stat Lipase Stat Troponin & CK Cardiac Panel Stat 06/26/21 15:40 Urine Culture Stat Urine Microscopic Stat Vital Signs Vital signs: Vital Signs - 8 hr 06/26/21 13:46 06/26/21 14:26 06/26/21 14:27 Temperature 98.2 F Pulse Rate 74 75 Respiratory Rate 16 Blood Pressure 142/65 H 172/70 H Pulse Oximetry 98 98 06/26/21 14:30 06/26/21 15:00 06/26/21 15:55 Temperature Pulse Rate 76 73 72 Respiratory Rate 18 Blood Pressure 158/70 H 163/68 H Pulse Oximetry 99 99 95 06/26/21 15:56 06/26/21 16:00 06/26/21 16:30 Temperature Pulse Rate 69 69 70 Respiratory Rate 18 20 16 Blood Pressure 181/78 H 160/72 H 166/86 H Pulse Oximetry 99 98 100 06/26/21 16:40 06/26/21 17:00 Temperature Pulse Rate 70 75 Respiratory Rate 18 18 Blood Pressure Pulse Oximetry 96 98 Medical Decision Making Lab Data Result diagrams: 06/26/21 13:44 06/26/21 13:44 Labs: Lab Results 06/26/21 06/26/21 06/26/21 Range/Units 13:44 13:44 15:40 WBC 5.8 (4.5-11.0) X10^3/uL RBC 4.57 (4.0-5.2) X10^6/uL Hgb 12.4 (12.0-16.0) g/dL Hct 37.7 (36-46) % MCV 82.5 (80-100) fL MCH 27.1 (26-34) PG MCHC 32.8 (30-36) % RDW 13.7 (11.6-14.8) % Plt Count 172 (150-400) X10^3/uL Neut % (Auto) 58.6 (50-75) % Lymph % (Auto) 32.5 (25-40) % [place] % (Auto) 6.2 (3-14) % Eos % (Auto) 1.6 L (2-4) % Baso % (Auto) 1.1 (0-2) % Neut # (Auto) 3400 (9666-3298) /uL Lymph # (Auto) 1900 (4879-7416) /uL [place] # (Auto) 400 (0-900) /uL Eos # (Auto) 100 (0-450) /uL Baso # (Auto) 100 (0-100) /uL Sodium 138 (137-145) mmol/L Potassium 4.3 (3.4-5.1) mmol/L Chloride 103 (98-107) mmol/L Carbon Dioxide 31 (22-32) mmol/L BUN 20 H (7-17) mg/dL Creatinine 0.75 (0.52-1.04) mg/dL Estimated GFR > 60.0 (>60) mL/min BUN/Creatinine Ratio 26.7 H (6-22) Glucose 142 H (80-110) mg/dL Calcium 9.2 (8.4-10.2) mg/dL Total Bilirubin 0.3 (0.2-1.3) mg/dL AST 28 (14-36) IU/L ALT 17 (<35) IU/L Alkaline Phosphatase 84 (38-126) U/L Total Creatine Kinase 27 L (30-135) U/L CK-MB (CK-2) TNP CK-MB (CK-2) Rel Index TNP Troponin I < 0.012 (0.01-0.034) ng/mL Total Protein 7.0 (6.3-8.2) g/dL Albumin 4.2 (3.5-5.0) g/dL Globulin 2.8 (1.7-4.1) g/dL Albumin/Globulin Ratio 1.5 (1.0-2.8) Lipase 107 (23-300) U/L Urine RBC None seen (0-5/HPF) Urine WBC 5-10/hpf H (0-5/HPF) Urine Bacteria Many (>30) H (None) Ur Culture Indicated? Specimen cultured Urine Dip Bedside Urine Glucose Negative Bedside Urine Bilirubin - Negative Bedside Urine Ketone - Negative Urine Specific [place] 1.020 Bedside Urine Occult Blood - Negative Bedside Urine pH 6.0 Bedside Urine Protein - Negative Bedside Urine Urobilinogen - Negative Bedside Urine Nitrite - Negative Bedside Urine Leukocytes + 70 Esterase Point of care testing: Urine Dip Bedside Urine Glucose Negative Bedside Urine Bilirubin - Negative Bedside Urine Ketone - Negative Urine Specific [place] 1.020 Bedside Urine Occult Blood - Negative Bedside Urine pH 6.0 Bedside Urine Protein - Negative Bedside Urine Urobilinogen - Negative Bedside Urine Nitrite - Negative Bedside Urine Leukocytes + 70 Esterase Imaging Data Chest x-ray: Radiologist's Impression: FINDINGS: Surgical changes and devices: None. Lungs and pleura: Biapical pleural thickening/scarring. Evidence of emphysematous change. No consolidation, pleural effusions or pneumothorax. Mediastinum: Calcified atheromatous change of the aorta. Heart size is normal. Bones and chest wall: No suspicious bony lesions. Overlying soft tissues appear unremarkable. IMPRESSION: No cardiopulmonary abnormality. Dictated by: Benson Villarreal M.D. on 06/26/2021 at 14:18 ECG Data Interpretation: Sinus rhythm at a rate of 78 Incomplete right bundle branch block Normal axis No acute ST T wave changes MDM Narrative Medical decision making narrative: 86-year-old woman presents with 2 hours of chest pain. With 1 set of questioning she points to the right side of her chest and neck and then states note was left side. At this point she is completely asymptomatic. Troponins drawn 4 hours after the onset complaint are unremarkable and there is no evidence of acute ischemic findings on her EKG. Chest x-ray is unremarkable without evidence of cardiomegaly, congestive heart failure or pneumothorax. CBC does not suggest significant infection or anemia and chemistries are unremarkable. Her urine does seem to have bacteria however there are no nitrates and she has no complaints of urinary tract infection. I doubt that this is a UTI, the sample will be cultured and a positive antibiotics will be called in. At this time, I do not have an explanation for the symptoms a she experienced after lunch but I am not concerned for acute coronary syndrome at this time and do believe she is safe for home discharge. On re-evaluation she continues to be pain free and states that she has not had any pain at all today other some mild sinus pain when she woke this morning. Her niece/poa Leslye Hall # [phone] will be updated and we will help the patient find a ride home. Discharge Plan Departure Patient Disposition: Home Clinical Impression: Chest pain, Memory loss Instructions: DI for Chest Pain Activity Restrictions/Additional Instructions: Thank you for coming in today You indicated that you had some chest pain after lunch today. This does not seem to be a heart attack or heart attack like syndrome. I hope that you are feeling better. Prescriptions: No Action cholecalciferol (vitamin D3) [Vitamin D3] 2,000 unit Capsule 2,000 unit PO DAILY Qty: 0 RF: 0 calcium carbonate-vitamin D3 [Calcium 600 + D(3)] 600 mg calcium- 200 unit Capsule 1 tab PO TID Qty: 0 RF: 0 folic acid 800 mcg Tablet 0.8 mg PO QDAY Qty: 0 RF: 0 vitamin B complex Tablet 1 tab PO BID Qty: 0 RF: 0 levothyroxine [Synthroid] 50 mcg tablet See Rx Instructions .ROUTE .COMPLEX Qty: 90 RF: 3 ramipril 2.5 mg capsule See Rx Instructions .ROUTE .COMPLEX Qty: 90 RF: 0 (DME) Ensure Nutritional Replacement See Rx Instructions .Route .MEDSUPPLY Qty: 90 RF: 11 aspirin [Adult Aspirin Regimen] 81 mg tablet,delayed release (DR/EC) 81 mg PO DAILY Qty: 90 RF: 0 Referrals: Priya Ramsay MD [Primary Care Provider] -
--- NOTE | 2021-06-26 15:28 | PC.NURSE ---
pt reports dizziness is better no increased dizziness wiht movement of head or eyes, no chest pain. no left arm discomfort i feel much better
[2021-06-26 16:04] LABS: Bacteria Urine Many (>30); RBC Urine None Seen (0-5/HPF); WBC Urine 5-10/HPF (0-5/HPF)
[2021-06-26 16:05] LABS: Culture Indicated Urine Specimen Cultured
--- NOTE | 2021-06-26 17:20 | PC.NURSE ---
ambulated with slow but steady gate. uses walker at home. denies dizziness when ambulating
== END 2021-06-26 18:20 | disposition home or self-care (01) ==
PROVIDERS: Emergency Provider Emergency Medicine; PCP Family Medicine
DX: R07.9 Chest pain, unspecified (principal); R41.3 Other amnesia; M25.511 Pain in right shoulder; R51.9 Headache, unspecified; R41.0 Disorientation, unspecified; F41.9 Anxiety disorder, unspecified
CPT/HCPCS: 36415; 71045; 80053; 81003; 81015; 82550; 83690; 84484; 85025; 87077; 87086; 87186; 93005; 99283; 99284

== ENCOUNTER → 2022-03-30 15:08 | Outpatient (CLI) | payer OTHER, SELFPAY ==
[2018-03-30 04:32] VITALS: BMI 16.6
[2022-03-30 15:25] LABS: Appearance Urine UA CLEAR; Bilirubin Urine UA NEGATIVE (NEGATIVE); Color Urine UA YELLOW; Glucose Urine UA NEGATIVE (Negative); Ketones Urine UA NEGATIVE (NEGATIVE); Leukocyte Esterase Urine UA 3+ (NEGATIVE); Nitrite Urine UA NEGATIVE (Negative); Occult Blood Urine UA TRACE-LYSED (Negative); Protein Urine UA NEGATIVE (Negative); Urobilinogen Urine UA 0.2 E.U./dL (0.2)
[2022-03-30 16:25] LABS: RBC Urine 1-5/HPF (0-5/HPF)
[2022-03-30 16:28] LABS: Bacteria Urine Moderate (10-30); Culture Indicated Urine Specimen Cultured; Squamous Epithelial Cell Urine 1-5 /HPF (0-5/HPF); WBC Urine 30-100/HPF (0-5/HPF)
== END ==
PROVIDERS: PCP Family Medicine; Referring Provider Family Medicine; Visit Provider Family Medicine
DX: R30.9 Painful micturition, unspecified (principal)
CPT/HCPCS: 81001; 87077; 87086; 87186

== ENCOUNTER → 2022-04-24 15:17 | Outpatient (CLI) | payer OTHER, SELFPAY ==
[2018-03-30 04:32] VITALS: BMI 16.6
[2022-04-24 15:34] LABS: Appearance Urine UA CLEAR; Bilirubin Urine UA NEGATIVE (NEGATIVE); Color Urine UA YELLOW; Glucose Urine UA NEGATIVE (Negative); Ketones Urine UA NEGATIVE (NEGATIVE); Leukocyte Esterase Urine UA NEGATIVE (NEGATIVE); Nitrite Urine UA NEGATIVE (Negative); Occult Blood Urine UA NEGATIVE (Negative); Protein Urine UA NEGATIVE (Negative); Specific Gravity Urine UA 1.015 (1.000-1.035); Urobilinogen Urine UA 0.2 E.U./dL (0.2)
[2022-04-24 15:35] LABS: pH Urine UA 6.5 (4.5-8.0)
[2022-04-24 15:48] LABS: Bacteria Urine None Seen; Culture Indicated Urine Cult Not Indicated; RBC Urine None Seen (0-5/HPF); Squamous Epithelial Cell Urine 0-1 /HPF (0-5/HPF); WBC Urine None Seen (0-5/HPF)
== END ==
PROVIDERS: PCP Family Medicine; Referring Provider Family Medicine; Visit Provider Family Medicine
DX: R30.0 Dysuria (principal); R35.0 Frequency of micturition; R39.15 Urgency of urination
CPT/HCPCS: 81001

== ENCOUNTER → 2022-06-02 10:19 | Outpatient (CLI) | payer OTHER, SELFPAY ==
[2018-03-30 04:32] VITALS: BMI 16.6
[2022-06-02 12:25] LABS: Alanine Aminotransferase 16 IU/L (<35); Albumin 4.1 g/dL (3.5-5.0); Albumin Globulin Ratio 1.2 (1.0-2.8); Alkaline Phosphatase 64 U/L (38-126); Aspartate Aminotransferase 26 IU/L (14-36); BUN Creatinine Ratio 18.8 (6-22); Bilirubin Total 0.6 mg/dL (0.2-1.3); Blood Urea Nitrogen 16 mg/dL (7-17); Calcium 9.3 mg/dL (8.4-10.2); Carbon Dioxide 29 mmol/L (22-32); Chloride 100 mmol/L (98-107); Estimated Glomerular Filt Rate > 60 mL/min (>60); Globulin 3.3 g/dL (1.7-4.1); Glucose 92 mg/dL (80-110); HEMOLYSIS < 15 (0-50); Potassium 3.9 mmol/L (3.4-5.1); Sodium 139 mmol/L (137-145); Total Protein 7.4 g/dL (6.3-8.2)
[2022-06-02 12:38] LABS: Hemoglobin A1C% w Est Avg Glu 5.3 % (4.0-6.0)
[2022-06-02 12:55] LABS: TSH w/ Reflex to FT4 0.34 uIU/mL (0.47-4.68)
[2022-06-02 13:24] LABS: Free T4, Direct Thyroxine 1.31 ng/dL (0.78-2.19)
== END ==
PROVIDERS: PCP Family Medicine; Referring Provider Family Medicine; Visit Provider Family Medicine
DX: R73.9 Hyperglycemia, unspecified (principal); I10 Essential (primary) hypertension; E03.9 Hypothyroidism, unspecified
CPT/HCPCS: 36415; 80053; 83036; 84439; 84443

== ENCOUNTER → 2022-08-04 12:35 | Outpatient (CLI) | payer OTHER, SELFPAY ==
[2018-03-30 04:32] VITALS: BMI 16.6
[2022-08-04 14:20] LABS: TSH w/ Reflex to FT4 1.44 uIU/mL (0.47-4.68)
== END ==
PROVIDERS: PCP Family Medicine; Referring Provider Family Medicine; Visit Provider Family Medicine
DX: E03.9 Hypothyroidism, unspecified (principal)
CPT/HCPCS: 36415; 84443

== ENCOUNTER → 2022-09-01 10:33 | Outpatient (CLI) | payer OTHER, SELFPAY ==
[2018-03-30 04:32] VITALS: BMI 16.6
[2022-09-01 11:10] LABS: Appearance Urine UA CLEAR; Bilirubin Urine UA NEGATIVE (NEGATIVE); Color Urine UA YELLOW; Glucose Urine UA NEGATIVE (Negative); Ketones Urine UA NEGATIVE (NEGATIVE); Leukocyte Esterase Urine UA 1+ (NEGATIVE); Nitrite Urine UA NEGATIVE (Negative); Occult Blood Urine UA NEGATIVE (Negative); Protein Urine UA NEGATIVE (Negative); Specific Gravity Urine UA 1.015 (1.000-1.035); Urobilinogen Urine UA 0.2 E.U./dL (0.2)
[2022-09-01 11:15] LABS: Bacteria Urine Few (2-10); RBC Urine None Seen (0-5/HPF); Squamous Epithelial Cell Urine 1-5 /HPF (0-5/HPF); WBC Urine 1-5/HPF (0-5/HPF)
[2022-09-01 11:16] LABS: Culture Indicated Urine Specimen Cultured
== END ==
PROVIDERS: PCP Family Medicine; Referring Provider Family Medicine; Visit Provider Family Medicine
DX: R30.0 Dysuria (principal)
CPT/HCPCS: 81001; 87086

== ENCOUNTER → 2023-02-11 15:51 | Outpatient (CLI) | payer OTHER, SELFPAY ==
[2022-09-25 10:16] VITALS: BMI 16.6
[2023-02-11 16:05] LABS: Appearance Urine UA SL CLOUDY; Bilirubin Urine UA NEGATIVE (NEGATIVE); Color Urine UA YELLOW; Glucose Urine UA NEGATIVE (Negative); Ketones Urine UA NEGATIVE (NEGATIVE); Leukocyte Esterase Urine UA 1+ (NEGATIVE); Nitrite Urine UA POSITIVE (Negative); Occult Blood Urine UA NEGATIVE (Negative); Protein Urine UA NEGATIVE (Negative); Urobilinogen Urine UA 0.2 E.U./dL (0.2)
[2023-02-11 16:16] LABS: pH Urine UA 5.5 (4.5-8.0)
[2023-02-11 16:32] LABS: Bacteria Urine Many (>30); Culture Indicated Urine Specimen Cultured; RBC Urine None Seen (0-5/HPF); Renal Epithelial Cells Urine 0-1/HPF (0-1/HPF); Squamous Epithelial Cell Urine 0-1 /HPF (0-5/HPF); WBC Urine 10-30/HPF (0-5/HPF)
== END ==
PROVIDERS: PCP Family Medicine; Referring Provider Family Medicine; Visit Provider Family Medicine
DX: R30.0 Dysuria (principal); R41.89 Other symptoms and signs involving cognitive functions and awareness; R46.89 Other symptoms and signs involving appearance and behavior
CPT/HCPCS: 81001; 87077; 87086; 87186

== ENCOUNTER → 2023-08-11 11:13 | Outpatient (CLI) | payer OTHER, SELFPAY ==
[2022-09-25 10:16] VITALS: BMI 16.6
[2023-08-11 12:48] LABS: Alanine Aminotransferase 16 IU/L (<35); Albumin 4.2 g/dL (3.5-5.0); Albumin Globulin Ratio 1.4 (1.0-2.8); Alkaline Phosphatase 59 U/L (38-126); Aspartate Aminotransferase 25 IU/L (14-36); BUN Creatinine Ratio 25.3 (6-22); Bilirubin Total 0.6 mg/dL (0.2-1.3); Blood Urea Nitrogen 22 mg/dL (7-17); Calcium 9.9 mg/dL (8.4-10.2); Carbon Dioxide 31 mmol/L (22-32); Chloride 99 mmol/L (98-107); Estimated Glomerular Filt Rate > 60 mL/min (>60); Globulin 3.1 g/dL (1.7-4.1); Glucose 98 mg/dL (80-110); HEMOLYSIS < 15 (0-50); Potassium 4.1 mmol/L (3.4-5.1); Sodium 138 mmol/L (137-145); Total Protein 7.3 g/dL (6.3-8.2)
[2023-08-11 13:20] LABS: TSH w/ Reflex to FT4 0.98 uIU/mL (0.47-4.68)
== END ==
PROVIDERS: PCP Family Medicine; Referring Provider Family Medicine; Visit Provider Family Medicine
DX: E03.9 Hypothyroidism, unspecified (principal)
CPT/HCPCS: 36415; 80053; 84443

== ENCOUNTER → 2023-10-01 12:13 | Outpatient (CLI) | payer OTHER, SELFPAY ==
[2022-09-25 10:16] VITALS: BMI 16.6
[2023-10-01 12:55] LABS: Appearance Urine UA CLEAR; Bilirubin Urine UA NEGATIVE (NEGATIVE); Color Urine UA YELLOW; Glucose Urine UA NEGATIVE (Negative); Ketones Urine UA NEGATIVE (NEGATIVE); Leukocyte Esterase Urine UA NEGATIVE (NEGATIVE); Nitrite Urine UA NEGATIVE (Negative); Occult Blood Urine UA NEGATIVE (Negative); Protein Urine UA NEGATIVE (Negative); Specific Gravity Urine UA 1.025 (1.000-1.035); Urobilinogen Urine UA 0.2 E.U./dL (0.2)
[2023-10-01 13:01] LABS: pH Urine UA 5.5 (4.5-8.0)
[2023-10-01 13:07] LABS: Amorphous Sediment Urine 2+; Bacteria Urine Few (2-10); Culture Indicated Urine Cult Not Indicated; Mucus Urine 1+ (Negative); RBC Urine None Seen (0-5/HPF); Squamous Epithelial Cell Urine 5-10 /HPF (0-5/HPF); WBC Urine 1-5/HPF (0-5/HPF)
== END ==
PROVIDERS: PCP Family Medicine; Referring Provider Family Medicine; Visit Provider Family Medicine
DX: R30.0 Dysuria (principal)
CPT/HCPCS: 81001; 87077; 87086

== ENCOUNTER → 2023-10-13 09:58 | Outpatient (CLI) | payer OTHER, SELFPAY ==
[2022-09-25 10:16] VITALS: BMI 16.6
[2023-10-13 10:08] LABS: Urine Volume 10mL (spun)
[2023-10-13 10:39] LABS: Appearance Urine UA CLEAR; Bilirubin Urine UA NEGATIVE (NEGATIVE); Color Urine UA YELLOW; Glucose Urine UA NEGATIVE (Negative); Ketones Urine UA NEGATIVE (NEGATIVE); Leukocyte Esterase Urine UA NEGATIVE (NEGATIVE); Nitrite Urine UA NEGATIVE (Negative); Occult Blood Urine UA NEGATIVE (Negative); Protein Urine UA NEGATIVE (Negative); Urobilinogen Urine UA 0.2 E.U./dL (0.2)
[2023-10-13 11:05] LABS: Bacteria Urine None Seen; Culture Indicated Urine Cult Not Indicated; RBC Urine None Seen (0-5/HPF); Squamous Epithelial Cell Urine None Seen (0-5/HPF); WBC Urine None Seen (0-5/HPF)
== END ==
PROVIDERS: PCP Family Medicine; Referring Provider Family Medicine; Visit Provider Family Medicine
DX: R30.0 Dysuria (principal)
CPT/HCPCS: 81001; 87086

== ENCOUNTER → 2023-11-15 12:43 | Outpatient (CLI) | payer OTHER, SELFPAY ==
[2022-09-25 10:16] VITALS: BMI 16.6
[2023-11-15 13:04] LABS: Appearance Urine UA CLEAR; Bilirubin Urine UA NEGATIVE (NEGATIVE); Color Urine UA YELLOW; Glucose Urine UA NEGATIVE (Negative); Ketones Urine UA NEGATIVE (NEGATIVE); Leukocyte Esterase Urine UA 2+ (NEGATIVE); Nitrite Urine UA POSITIVE (Negative); Occult Blood Urine UA 1+ (Negative); Protein Urine UA TRACE (Negative); Specific Gravity Urine UA 1.025 (1.000-1.035); Urobilinogen Urine UA 0.2 E.U./dL (0.2); pH Urine UA 5.5 (4.5-8.0)
[2023-11-15 13:11] LABS: Bacteria Urine Many (>30); Culture Indicated Urine Specimen Cultured; RBC Urine 5-10/HPF (0-5/HPF); Squamous Epithelial Cell Urine 0-1 /HPF (0-5/HPF); Urine Volume 10mL (spun); WBC Urine 30-100/HPF (0-5/HPF)
== END ==
PROVIDERS: PCP Family Medicine; Referring Provider Family Medicine; Visit Provider Family Medicine
DX: R39.9 Unspecified symptoms and signs involving the genitourinary system (principal)
CPT/HCPCS: 81001; 87077; 87086; 87186

== ENCOUNTER → 2023-12-15 17:41 | Outpatient (CLI) | payer OTHER, SELFPAY ==
[2022-09-25 10:16] VITALS: BMI 16.6
== END ==
PROVIDERS: PCP Family Medicine; Visit Provider Family Medicine
DX: R30.0 Dysuria (principal)
CPT/HCPCS: 87086

== ENCOUNTER → 2024-08-18 09:51 | Outpatient (ROUT) | payer OTHER, SELFPAY ==
[2022-09-25 10:16] VITALS: BMI 16.6
[2024-08-18 10:19] LABS: Appearance Urine UA CLEAR; Bilirubin Urine UA NEGATIVE (NEGATIVE); Color Urine UA YELLOW; Glucose Urine UA NEGATIVE (Negative); Ketones Urine UA NEGATIVE (NEGATIVE); Leukocyte Esterase Urine UA NEGATIVE (NEGATIVE); Nitrite Urine UA NEGATIVE (Negative); Occult Blood Urine UA NEGATIVE (Negative); Protein Urine UA NEGATIVE (Negative); Urobilinogen Urine UA 0.2 E.U./dL (0.2)
== END ==
PROVIDERS: PCP Family Medicine
DX: R39.89 Other symptoms and signs involving the genitourinary system (principal)
CPT/HCPCS: 81003